=== PATIENT | female | born 1940 | race Caucasian/White ===

== ENCOUNTER 2016-05-09 17:22 | Emergency (ER) | payer OTHER, MEDICARE ==
[2016-05-09 17:57] VITALS: BMI 31.0
--- NOTE | 2016-05-09 19:00 | PDOC ---
History of Present Illness - General Chief Complaint: Wound Infection Stated Complaint: Wound Infection Time Seen by Provider: 05/09/16 17:33 History Source: Patient Exam Limitations: No Limitations - History of Present Illness Initial Comments: 05/09/16 20:10 The patient is a 75 year old female, BIBA from [facility] with a significant past medical history of dementia, hypothyroidism, hyperlipidemia, HTN, who was sent to the emergency department with possible left ankle wound infection. Patient reports having a previous recent ORIF (surgery was done in Jan 2016 [facility] ), on her left ankle, but is unsure on exact details secondary to dementia. Upon evaluation patient is confused and unsure why she is here. She does not know who sent her to the ER. She denies any pain in her left ankle. She denies recent fevers, chills, headache or dizziness. She denies recent nausea, vomit, diarrhea or constipation. Allergies: NKDA Social history: Nonsmoker. PCP: Dr.DeFlippo Phillipsho: Dr. Ferrer Past History - Past Medical History Allergies/Adverse Reactions: Allergies Allergy/AdvReac Type Severity Reaction Status Date / Time ИРИНА Inhibitors Allergy Unknown Verified 05/09/16 17:35 Sulfa (Sulfonamide Allergy Unknown Verified 05/09/16 17:35 Antibiotics) Home Medications: Ambulatory Orders Acetaminophen 650 mg PO Q4H PRN 05/09/16 Allopurinol [Zyloprim -] 100 mg PO DAILY 05/09/16 Amlodipine Besylate [Norvasc -] 10 mg PO DAILY 05/09/16 Aspirin [ASA -] 325 mg PO DAILY 05/09/16 Carvedilol 25 mg PO BID 05/09/16 Cyanocobalamin (Vitamin B-12) [Vitamin B12] 1,000 mcg PO DAILY 05/09/16 Estrogens,Conjugated [Premarin -] 0.3 mg PO DAILY 05/09/16 Ezetimibe [Zetia] 10 mg PO DAILY 05/09/16 Ferrous Sulfate 325 mg PO DAILY 05/09/16 Folic Acid 0.4 mg PO DAILY 05/09/16 Insulin (Levemir) [Levemir Flexpen -] 32 units SQ BID 05/09/16 Levothyroxine [Synthroid -] 100 mcg PO DAILY 05/09/16 Losartan Potassium 100 mg PO DAILY 05/09/16 Medroxyprogesterone Acetate 2.5 mg PO DAILY 05/09/16 Nitroglycerin [Nitrostat] 0.4 mg SL PRN PRN 05/09/16 Nystatin Ointment [Mycostatin Ointment -] 1 applic TP TID 05/09/16 Oxycodone HCl 5 mg PO Q4H PRN 05/09/16 Polyethylene Glycol 3350 [Miralax (For Daily Use) -] 17 gm PO DAILY 05/09/16 Sennosides/Docusate Sodium [Senna Laxative Tablet] 1 each PO DAILY 05/09/16 Trazodone HCl 50 mg PO TID 05/09/16 Dementia: Yes Diabetes: Yes HTN: Yes Hypercholesterolemia: Yes Psychiatric Problems: Yes (DEPRESSION.) Thyroid Disease: Yes (HYPO.) Other medical history: GOUT. - Psycho/Social/Smoking Cessation Hx Anxiety: No Suicidal Ideation: No Smoking History: Never smoked Hx Alcohol Use: No Drug/Substance Use Hx: No Substance Use Type: None Review of Systems - Review of Systems Able to Perform ROS?: Yes Comments:: 05/09/16 20:10 ROS -possibly limited due to dementia. CONSTITUTIONAL: No reported: Fever, Chills, Diaphoresis, Generalized Weakness, Malaise, Loss of Appetite HEENT: No reported: Rhinorrhea, Nasal Congestion, Throat Pain, Throat Swelling, Difficulty Swallowing, Mouth Swelling, Ear Pain, Eye Pain, Visual Changes CARDIOVASCULAR: No reported: Chest Pain, Syncope, Palpitations, Irregular Heart Rate, Lightheadedness, Peripheral Edema RESPIRATORY: No reported: Cough, Shortness of Breath, SOB with Exertion, Orthopnea, Wheezing , Stridor, Hemoptysis GASTROINTESTINAL: No reported: Abdominal pain, Abdominal Distension, Nausea, Vomiting, Diarrhea, Constipation, Melena, Hematochezia GENITOURINARY: No reported: Dysuria, Frequency, Urgency, Hesitancy, Flank Pain, Genital Pain MUSCULOSKELETAL: +Left ankle wound infection. No reported: Myalgia, Arthralgia, Joint Swelling, Back pain, Neck Pain SKIN: No reported: Rash, Itching, Pallor HEMEATOLOGIC/IMMUNOLOGIC: No reported: Easy Bleeding, Easy Bruising, Lymphadenopathy, Frequent infections ENDOCRINE: No reported: Unexplained Weight Gain, Unexplained Weight Loss, Heat Intolerance , Cold Intolerance NEUROLOGIC: No reported: Headache, Focal Weakness, Paresthesias, Vertigo, Lightheadedness, Unsteady Gait, Seizure, Mental Status Changes, Incontinence PSYCHIATRIC: No reported: Anxiety, Depression *Physical Exam - Vital Signs Last Vital Signs Temp Pulse Resp BP Pulse Ox 97.7 F 84 18 185/74 99 05/09/16 17:34 05/09/16 17:34 05/09/16 17:34 05/09/16 17:34 05/09/16 17:34 - Physical Exam Comments: 05/09/16 20:10 GENERAL: The patient is awake, alert, and oriented x 1 (knows name, that she is in hospital, but gave '[facility]'), Nontoxic - in no acute distress, morbidly obese. HEAD: Normocephalic, atraumatic. EYES: extraocular movements intact, sclera anicteric, conjunctiva clear. ENT: Normal voice, Moist mucous membranes. NECK: Normal range of motion, supple LUNGS: Breath sounds equal, clear to auscultation bilaterally. No wheezes, no rhonchi, no rales. HEART: Regular rate and rhythm, normal S1 and S2 without murmur, rub or gallop. ABDOMEN: Soft, nontender, normoactive bowel sounds. No guarding, no rebound. . No CVA tenderness EXTREMITIES: LLE large post op incision on lateral lower leg, with sutures and steristrips in place, on medial lower leg there is also an post op incision with sutures/steri strips but the distal end of the lesion shows an ulceration with mild surrounding erythema, no fluctuance, mildly tender to palpation. NEUROLOGICAL: No facial assymetry, Normal speech, PSYCH: Normal mood, normal affect. SKIN: Warm, Dry, normal turgor, Heart Score/ECG Review - ECG Impressions Comment:: 05/09/16 20:13 Twelve-lead EKG was performed and reviewed by me. There is normal sinus rhythm with a normal rate. Rate of 75 Left axis deviation Abnormal R wave progression Q waves in inferior leads Q waves in the anterior leads no old EKG for comparison ED Treatment Course - LABORATORY CBC & Chemistry Diagram: 05/09/16 19:30 05/09/16 18:28 Medical Decision Making - Medical Decision Making 05/09/16 18:38 75y F hx of dementia, depression, htn, hypothyroidism s/p surgical repair of L ankle fracture, was sent to the ER for evluation of concern for a wound to her L ankle. I spoke to the patients son who said the pts injury and surgery was originally in january, and was in rehab for 2 months, and had been having follow up appointments with her orthopedic surgeon, The pts does not appear to have an acute infection, as it is not warm, no discharge, but there is a present of the ulcer on the medial malleolus there iare steri strips still present, which is not consistent with a surgery that was in 02/08 with regular ortho follow up unless it was revised will discuss with dr. ferrer if possible if unable to talk to dr. ferrer will consult our ortho professional benefits sales consultant. 05/09/16 19:[address] ferrer - would recommend starting keflex and should have the pt fu wiht them this week sometime in the office. will give pt a dose of abx here. will sign out to dr. Sanchez to fu with lab work *DC/Admit/Observation/Transfer Diagnosis at time of Disposition: Wound cellulitis - Referrals Referrals: Gracie Cage MD [Primary Care Provider] - Eileen Ferrer MD [Other] - Patient Instructions Printed Discharge Instructions: DI for Wound Infection Additional Instructions: Return to the emergency department immediately with ANY new, persistent or worsening symptoms. including fever, increased redness, pain, discharge or other concerns. You MUST call and follow up with Dr. Ferrer for further evaluation of your symptoms this week. Results were discussed with you. Please make sure your doctor reviews the results of your emergency evaluation. If you had any xrays during your visit, it was read preliminarily by myself, a Radiologist will review it and if there are any additional findings we will call you. Print Language: GIBRALTARIAN
[2016-05-09 19:10] LABS: ALBUMIN 3.4 g/dl (3.4-5.0); BILIRUBIN,TOTAL 0.2 mg/dL (0.2-1.0); CALCIUM 9.8 mg/dL (8.5-10.1); TOT PROT 7.8 g/dl (6.4-8.2)
[2016-05-09 19:53] LABS: MCH 27.7 pg (25.7-33.7); MEAN CELL VOLUME 86.6 fl (80-96); MEAN PLT VOLUME 8.2 fl (7.5-11.1); PLATELET COUNT 312 K/MM3 (134-434); RDW 15.4 % (11.6-15.6); WHITE BLOOD COUNT 14.1 K/mm3 (4.0-10.0)
[2016-05-09] MEDS ORDERED: CEFTRIAXONE 50 ML ONE ×2 (20:26→20:27)
[2016-05-09 20:28] LABS: METAMYELOCYTE 1 % (0-2); PLATELET ESTIMATE ADEQUATE (NORMAL)
[2016-05-09 20:29] LABS: HYPOCHROMIA 1+
--- NOTE | 2016-05-09 22:47 | PDOC ---
*Physical Exam - Vital Signs Last Vital Signs Temp Pulse Resp BP Pulse Ox 97.7 F 84 18 185/74 99 05/09/16 17:34 05/09/16 17:34 05/09/16 17:34 05/09/16 17:34 05/09/16 17:34 ED Treatment Course - LABORATORY CBC & Chemistry Diagram: 05/09/16 19:30 05/09/16 18:28 - ADDITIONAL ORDERS Additional order review: Laboratory Results 05/09/16 18:28 Sodium 139 Potassium 4.7 Chloride 104 Carbon Dioxide 24 Anion Gap 11 BUN 21 H Creatinine 1.0 Creat Clearance w eGFR 54.05 Random Glucose 314 H* Calcium 9.8 Total Bilirubin 0.2 AST 16 ALT 16 Alkaline Phosphatase 145 H Total Protein 7.8 Albumin 3.4 05/09/16 05/09/16 19:30 18:28 RBC 4.11 Cancelled MCV 86.6 Cancelled MCHC 32.0 Cancelled RDW 15.4 Cancelled MPV 8.2 Cancelled Neutrophils % 70.0 Cancelled Lymphocytes % 26.0 Cancelled Monocytes % 3.0 L Cancelled Eosinophils % Cancelled Basophils % Cancelled - Medications Given in the ED: ED Medications Discontinued Medications Generic Name Dose Route Start Last Admin Trade Name Freq PRN Reason Stop Dose Admin Ceftriaxone Sodium 1,000 mg 05/09/16 19:57 05/09/16 20:55 Rocephin - IVPB 05/09/16 19:58 1,000 mg ONCE ONE Administration Medical Decision Making - Medical Decision Making 05/09/16 22:43 glucose is now 204. Pt will return to [address] [place] [address]. *DC/Admit/Observation/Transfer Diagnosis at time of Disposition: Wound cellulitis - Discharge Dispostion Disposition: HOME Condition at time of disposition: Stable Admit: No - Referrals Referrals: Eileen Morales MD [Other] Gracie Cage MD [Primary Care Provider] - - Patient Instructions Printed Discharge Instructions: DI for Wound Infection Additional Instructions: Return to the emergency department immediately with ANY new, persistent or worsening symptoms. including fever, increased redness, pain, discharge or other concerns. You MUST call and follow up with Dr. Morales for further evaluation of your symptoms this week. Results were discussed with you. Please make sure your doctor reviews the results of your emergency evaluation. If you had any xrays during your visit, it was read preliminarily by myself, a Radiologist will review it and if there are any additional findings we will call you. Print Language: SERBIAN - Post Discharge Activity
[2016-05-09 23:51] VITALS: BP 141/72; PULSE 80; TEMP 97.9
--- NOTE | 2016-05-10 13:46 | EKG ---
Test Reason : Blood Pressure : / mmHG Vent. Rate : 075 BPM Atrial Rate : 075 BPM P-R Int : 156 ms QRS Dur : 086 ms QT Int : 416 ms P-R-T Axes : 048 -43 036 degrees QTc Int : 464 ms NORMAL SINUS RHYTHM LEFT AXIS DEVIATION MINIMAL VOLTAGE CRITERIA FOR LVH, MAY BE NORMAL VARIANT SEPTAL INFARCT , AGE UNDETERMINED POSSIBLE LATERAL INFARCT , AGE UNDETERMINED INFERIOR INFARCT , AGE UNDETERMINED ABNORMAL ECG NO PREVIOUS ECGS AVAILABLE Confirmed by JUDI ALTAMIRANO MD ([id number]) on 05/10/2016 1:45:55 PM Referred By: Confirmed By:JUDI ALTAMIRANO MD
== END 2016-05-09 23:51 | disposition home or self-care (01) ==
LOC: JER 17:22
DX: L03.116 Cellulitis of left lower limb (principal); T81.4XXA Infection following a procedure, initial encounter; I10 Essential (primary) hypertension; E11.9 Type 2 diabetes mellitus without complications; Z79.4 Long term (current) use of insulin; E78.00 Pure hypercholesterolemia, unspecified; E03.9 Hypothyroidism, unspecified; M10.9 Gout, unspecified; F03.90 Unspecified dementia, unspecified severity, without behavioral disturbance, psychotic disturbance, mood disturbance, and anxiety
CPT/HCPCS: 36415; 73610-TC-LT; 73630-TC-LT; 80053; 85025; 87040; 93005; 93010; 99284-25

== ENCOUNTER 2016-05-20 21:43 | Inpatient (IN) | payer OTHER, MEDICARE ==
--- NOTE | 2016-05-20 22:32 | PDOC ---
History of Present Illness <Mohinder Burger - Last Filed: 05/20/16 22:32> - History of Present Illness Initial Comments: 05/20/16 23:28 Patient is a 75 year old female, from [facility], with significant medical hx of dementia, diabetes, HTN, HLD, and hypothyroidism who has been sent to the ED from [place] for a chronic wound to her left ankle. As per previous charts, the patient recently had an ORIF to left ankle performed by Dr. Morales at [place] 01/2016. The patient is a poor historian due to dementia and is unsure of her history. She denies any fevers. Allergies: NKDA Social History: Nonsmoker PMD: Gracie Mohamud MD Institutional Custodian: Anthony Mas MD <Sofie Maldonado - Last Filed: 05/20/16 23:28> <Janee Zuniga - Last Filed: 05/21/16 04:34> - General Chief Complaint: Revisit,Wound Recheck Stated Complaint: WOUND RT FOOT Past History - Past Medical History Dementia: Yes Diabetes: Yes HTN: Yes Hypercholesterolemia: Yes Psychiatric Problems: Yes (DEPRESSION.) Thyroid Disease: Yes (HYPO.) - Immunization History Immunization Up to Date: Yes - Psycho/Social/Smoking Cessation Hx Anxiety: No Suicidal Ideation: No Smoking History: Never smoked Have you smoked in the past 12 months: No Information on smoking cessation initiated: No Hx Alcohol Use: No Drug/Substance Use Hx: No Substance Use Type: None <Mohinder Burger - Last Filed: 05/20/16 22:32> <Sofie Maldonado - Last Filed: 05/20/16 23:28> <Janee Zuniga - Last Filed: 05/21/16 04:34> - Past Medical History Allergies/Adverse Reactions: Allergies Allergy/AdvReac Type Severity Reaction Status Date / Time ИРИНА Inhibitors Allergy Unknown Verified 05/20/16 22:24 Sulfa (Sulfonamide Allergy Unknown Verified 05/20/16 22:24 Antibiotics) Home Medications: Ambulatory Orders Acetaminophen [Tylenol] 325 mg PO DAILY PRN 05/21/16 Allopurinol [Zyloprim -] 100 mg PO DAILY 05/21/16 Amlodipine Besylate 10 mg PO DAILY 05/21/16 Aspirin [ASA -] 325 mg PO DAILY 05/21/16 Carvedilol [Coreg -] 25 mg PO DAILY 05/21/16 Cyanocobalamin (Vitamin B-12) [Vitamin B-12] 1,000 mcg PO DAILY 05/21/16 Estrogens,Conjugated [Premarin -] 0.3 mg PO DAILY 05/21/16 Ezetimibe [Zetia] 10 mg PO DAILY 05/21/16 Ferrous Sulfate 325 mg PO DAILY 05/21/16 Folic Acid 0.4 mg PO DAILY 05/21/16 Furosemide [Lasix -] 20 mg PO DAILY 05/21/16 Insulin (Levemir) [Levemir Flexpen -] 0 units SQ DAILY 05/21/16 Insulin Lispro [Humalog] 0 unit SQ DAILY 05/21/16 Levothyroxine [Synthroid -] 100 mcg PO DAILY 05/21/16 Losartan Potassium 100 mg PO DAILY 05/21/16 Medroxyprogesterone Acetate 2.5 mg PO DAILY 05/21/16 Nitroglycerin [Nitrostat] 0.4 mg SL DAILY PRN 05/21/16 Nystatin/Triamcinolone Top Cr [Mycolog II Cream -] 1 applic TP BID 05/21/16 Oxycodone HCl 5 mg PO Q4H PRN 05/21/16 Polyethylene Glycol 3350 [Miralax (For Daily Use) -] 17 gm PO DAILY 05/21/16 Sennosides [Senna] 2 tab PO DAILY 05/21/16 Trazodone HCl 50 mg PO DAILY 05/21/16 Review of Systems - Review of Systems Comments:: 05/20/16 23:28 CONSTITUTIONAL: Absent: fever, chills, diaphoresis, generalized weakness, malaise, loss of appetite HEENT: Absent: rhinorrhea, nasal congestion, throat pain, throat swelling, difficulty swallowing, mouth swelling, ear pain, eye pain, visual changes CARDIOVASCULAR: Absent: chest pain, syncope, palpitations, irregular heart rate, lightheadedness , peripheral edema RESPIRATORY: Absent: cough, shortness of breath, dyspnea with exertion, orthopnea, wheezing, stridor, hemoptysis GASTROINTESTINAL: Absent: abdominal pain, abdominal distension, nausea, vomiting, diarrhea, constipation, melena, hematochezia GENITOURINARY: Absent: dysuria, frequency, urgency, hesitancy, hematuria, flank pain, genital pain MUSCULOSKELETAL: Present: left ankle swelling Absent: myalgia, arthralgia SKIN: Present: ulcer wound to left ankle Absent: rash, itching, pallor HEMATOLOGIC/IMMUNOLOGIC: Absent: easy bleeding, easy bruising, lymphadenopathy, frequent infections ENDOCRINE: Absent: unexplained weight gain, unexplained weight loss, heat intolerance, cold intolerance NEUROLOGIC: Absent: headache, focal weakness or paresthesia, dizziness, unsteady gait, seizure, mental status changes, bladder or bowel incontinence. PSYCHIATRIC: Absent: anxiety, depression, suicidal or homicidal ideation, hallucinations <JoelSofie - Last Filed: 05/20/16 23:28> *Physical Exam - Vital Signs Last Vital Signs Temp Pulse Resp BP Pulse Ox 97.5 F L 79 19 155/75 98 05/20/16 22:16 05/20/16 22:16 05/20/16 22:16 05/20/16 22:16 05/20/16 22:16 <Mohinder Burger - Last Filed: 05/20/16 22:32> - Vital Signs Last Vital Signs Temp Pulse Resp BP Pulse Ox 97.5 F L 79 19 155/75 98 05/20/16 22:16 05/20/16 22:16 05/20/16 22:16 05/20/16 22:16 05/20/16 22:16 - Physical Exam Comments: 05/20/16 23:29 GENERAL: Well developed, well nourished. Awake and alert. No acute distress. HEENT: Normocephalic, atraumatic. PERRLA, EOMI. No conjunctival pallor. Sclera are non- icteric. Moist mucous membranes. Oropharynx is clear. NECK: Supple. Full ROM. No JVD. Carotid pulses 2+ and symmetric, without bruits. No thyromegaly. No lymphadenopathy. CARDIOVASCULAR: Regular rate and rhythm. No murmurs, rubs, or gallops. Distal pulses are 2+ and symmetric. PULMONARY: No evidence of respiratory distress. Lungs clear to auscultation bilaterally. No wheezing, rales or rhonchi. ABDOMINAL: Soft. Non-tender. Non-distended. No rebound or guarding. No organomegaly. Normoactive bowel sounds. MUSCULOSKELETAL: Normal range of motion at all joints. No bony deformities or tenderness. No CVA tenderness. EXTREMITIES: Left leg cellulitis. Ulcer along the medial malleolus of the left ankle. Left foot swelling. Unable to detect DP pulses. Patient can move toes. No cyanosis. No clubbing. No calf tenderness. SKIN: Warm and dry. Normal capillary refill. No rashes. No jaundice. NEUROLOGICAL: Alert, awake, appropriate. Cranial nerves 2-12 intact. Normal speech. Gait is normal without ataxia. <Sofie Maldonado - Last Filed: 05/20/16 23:28> - Vital Signs Last Vital Signs Temp Pulse Resp BP Pulse Ox 97.5 F L 79 19 155/75 98 05/20/16 22:16 05/20/16 22:16 05/20/16 22:16 05/20/16 22:16 05/20/16 22:16 <Janee Zuniga - Last Filed: 05/21/16 04:34> ED Treatment Course - LABORATORY CBC & Chemistry Diagram: 05/20/16 23:30 05/20/16 23:30 - ADDITIONAL ORDERS Additional order review: Laboratory Results 05/20/16 05/20/16 23:30 23:30 Sodium 142 Potassium 3.9 Chloride 104 Carbon Dioxide 29 D Anion Gap 9 BUN 20 H Creatinine 1.1 H Creat Clearance w eGFR 48.42 Random Glucose 166 H D Lactic Acid 0.984 Calcium 8.9 Total Bilirubin 0.2 AST 15 ALT 15 Alkaline Phosphatase 137 H Total Protein 7.1 Albumin 3.0 L 05/20/16 23:30 RBC 3.89 MCV 85.7 MCHC 32.9 RDW 15.7 H MPV 8.3 Neutrophils % 70.5 Lymphocytes % 20.1 D Monocytes % 7.1 D Eosinophils % 1.6 Basophils % 0.7 - Medications Given in the ED: ED Medications Discontinued Medications Generic Name Dose Route Start Last Admin Trade Name Freq PRN Reason Stop Dose Admin Vancomycin HCl 1,000 mg/ 250 mls @ 250 mls/hr 05/20/16 23:04 05/21/16 00:06 Dextrose IVPB 05/21/16 00:03 250 mls/hr ONCE ONE Administration Protocol Piperacillin Sod/Tazobactam Sod 3.375 gm 05/20/16 23:05 05/20/16 23:39 Zosyn 3.375gm Ivpb (Pre-Docked) IVPB 05/20/16 23:06 3.375 gm ONCE ONE Administration Protocol <Janee Zuniga - Last Filed: 05/21/16 04:34> Medical Decision Making - Medical Decision Making 05/21/16 03:42 I received patient on signout. She is from the [facility] with infected leg and hardware after a ORIF. She will be admitted for IV abx. Hospitalist was paged. I am awaiting response. <Janee Zuniga - Last Filed: 05/21/16 04:34> *DC/Admit/Observation/Transfer <Mohinder Burger - Last Filed: 05/20/16 22:32> - Attestations Scribe Attestion: 05/20/16 23:29 Documentation prepared by Sofie Maldonado, acting as director biomedical engineering for Mohinder Burger MD. <Sofie Maldonado - Last Filed: 05/20/16 23:28> - Discharge Dispostion Admit: Yes <Janee Zuniga - Last Filed: 05/21/16 04:34> Diagnosis at time of Disposition: Wound cellulitis, Inability to ambulate due to ankle or foot - Discharge Dispostion Condition at time of disposition: Guarded - Referrals Referrals: Anthony Mas [Primary Care Provider] -
[2016-05-20 22:50] VITALS: BP 155/75; PULSE 79; TEMP 97.5; BMI 31.0
[2016-05-20] MEDS ORDERED: VANCOMYCIN 1,000 MG in DEXTROSE 5%-WATER - 250 ML IVPB ONE (23:04)
[2016-05-20] MEDS ORDERED: PIPERACILLIN/TAZOB 3.375 GM/50 ML PRE-DOCKED IVPB ONE (23:05)
[2016-05-20] MEDS ORDERED: PIPERACILLIN/TAZOB 3.375 GM 50 ML IVPB ONE ×2 (23:21→23:36)
[2016-05-21] MEDS ORDERED: VANCOMYCIN 1 GRAM (PRE-DOCKED) 250 ML IVPB ONE (00:04)
[2016-05-21 00:06] LABS: BASOPHIL 0.7 % (0-2.0); EOSINOPHIL 1.6 % (0-4.5); MCH 28.2 pg (25.7-33.7); MCHC 32.9 g/dl (32.0-36.0); MEAN CELL VOLUME 85.7 fl (80-96); MEAN PLT VOLUME 8.3 fl (7.5-11.1); NEUTROPHILS 70.5 % (42.8-82.8); PLATELET COUNT 271 K/MM3 (134-434); RDW 15.7 % (11.6-15.6); WHITE BLOOD COUNT 14.5 K/mm3 (4.0-10.0)
[2016-05-21 00:14] LABS: BILIRUBIN,TOTAL 0.2 mg/dL (0.2-1.0); CALCIUM 8.9 mg/dL (8.5-10.1); CREATININE 1.1 mg/dL (0.55-1.02); TOT PROT 7.1 g/dl (6.4-8.2)
[2016-05-21 05:11] LABS: URINE APPEARANCE CLEAR; URINE BILIRUBIN NEGATIVE (NEGATIVE); URINE BLOOD NEGATIVE (NEGATIVE); URINE COLOR STRAW; URINE GLUCOSE (UA) NEGATIVE (NEGATIVE); URINE KETONE NEGATIVE (NEGATIVE); URINE LEUK ESTERASE NEGATIVE (NEGATIVE); URINE NITRITE NEGATIVE (NEGATIVE); URINE UROBILINOGEN NEGATIVE E.U./dl (0.2-1.0)
--- NOTE | 2016-05-21 05:28 | CONSULT ---
Consultation: REQUESTING PROVIDER: Dr Zuniga CONSULT REQUEST: We have been asked to medically evaluate this patient for ( cellulites). HISTORY OF PRESENT ILLNESS: History obtained from ED notes The patient is a 75 year old female, with a significant past medical history of dementia, hypothyroidism, hyperlipidemia, HTN, who was sent to the emergency department with possible left ankle wound infection. Patient reports having a previous recent ORIF (surgery was done in Jan 2016 at [facility] by ), on her left ankle, but is unsure on exact details secondary to dementia. She states mild pain in her left ankle on palpation. She denies recent fevers, chills, headache or dizziness. She denies recent nausea, vomit, diarrhea or constipation. Patient came to ED couple of days ago with same problem and was discharged on Keflex. Patient has recieved vanco and zosyn in ed . PCP: Dr.DeFlippo Teague: Dr. Morales REVIEW OF SYSTEMS: CONSTITUTIONAL: Absent: fever, chills, diaphoresis, generalized weakness, malaise, loss of appetite, weight change HEENT: Absent: rhinorrhea, nasal congestion, throat pain, throat swelling, CARDIOVASCULAR: Absent: chest pain, syncope, palpitations, RESPIRATORY: Absent: cough, shortness of breath, dyspnea GASTROINTESTINAL: Absent: abdominal pain, abdominal distension, nausea, vomiting, diarrhea, constipation, melena, GENITOURINARY: Absent: dysuria, frequency, urgency, hesitancy, hematuria MUSCULOSKELETAL: mild pain in left ankle on palpation Absent: myalgia, arthralgia, joint swelling , back pain, neck pain NEUROLOGIC: Absent: headache, focal weakness or paresthesias, dizziness, unsteady gait, PSYCHIATRIC: Absent: anxiety, depression, PHYSICAL EXAMINATION Vital Signs - 24 hr 05/20/16 05/21/16 22:16 04:27 Temperature 97.5 F L Pulse Rate 79 Respiratory 19 19 Rate Blood Pressure 155/75 O2 Sat by Pulse 98 98 Oximetry (%) GENERAL: Awake, alert, and fully oriented, in no acute distress. HEAD: Normal with no signs of trauma. EYES: Pupils equal, round and reactive to light, conjunctiva clear. EARS, NOSE, THROAT: Moist mucous membranes. NECK: Normal range of motion, supple LUNGS: Breath sounds equal, clear to auscultation bilaterally. No wheezes, and no crackles. No accessory muscle use. HEART:s1s2 normal ABDOMEN: Soft, nontender, not distended, normoactive bowel sounds, no guarding, no rebound, no masses. UPPER EXTREMITIES: 2+ pulses, warm, well-perfused. No cyanosis. No clubbing. Cap refill <2 seconds. No peripheral edema. LOWER EXTREMITIES:warm, well-perfused. No calf tenderness. peripheral edema 2+ , dry chronic wound present on left ankle on medial side, no discharge seen, temp in both legs on palpation is same, mild tenderness on left ankle on deep palpation. No erythema, sensation to fine touch present. PSYCHIATRIC: Cooperative. Good eye contact. Appropriate mood and affect. SKIN: Warm, dry, Laboratory Results - last 24 hr 05/20/16 05/20/16 05/20/16 23:30 23:30 23:30 WBC RBC Hgb Hct MCV MCHC RDW Plt Count MPV Neutrophils % Lymphocytes % Monocytes % Eosinophils % Basophils % ESR 70 H Sodium 142 Potassium 3.9 Chloride 104 Carbon Dioxide 29 D Anion Gap 9 BUN 20 H Creatinine 1.1 H Creat Clearance w eGFR 48.42 Random Glucose 166 H D Lactic Acid 0.984 Calcium 8.9 Total Bilirubin 0.2 AST 15 ALT 15 Alkaline Phosphatase 137 H Total Protein 7.1 Albumin 3.0 L 05/20/16 23:30 WBC 14.5 H RBC 3.89 Hgb 11.0 Hct 33.4 MCV 85.7 MCHC 32.9 RDW 15.7 H Plt Count 271 MPV 8.3 Neutrophils % 70.5 Lymphocytes % 20.1 D Monocytes % 7.1 D Eosinophils % 1.6 Basophils % 0.7 ESR Sodium Potassium Chloride Carbon Dioxide Anion Gap BUN Creatinine Creat Clearance w eGFR Random Glucose Lactic Acid Calcium Total Bilirubin AST ALT Alkaline Phosphatase Total Protein Albumin ASSESSMENT/PLAN: Chronic wound on left ankle with very mild cellulites, no signs of osteomyelitis ( no active discharge, dry, temp in both leg same, afebrile) - give clindamycin 600mg q8h - limb elevation, - Follow up with her orthopedic surgeon Dr. Morales - Patient can be discharged with an advice to take medication as prescribed, limb elevation and follow up with her orthopedic surgeon. Dispo. Thank you for this consultative opportunity. <Won Durán - Last Filed: 05/21/16 06:10> Consultation: REQUESTING PROVIDER: CONSULT REQUEST: We have been asked to medically evaluate this patient for ( specify). HISTORY OF PRESENT ILLNESS: REVIEW OF SYSTEMS: CONSTITUTIONAL: Absent: fever, chills, diaphoresis, generalized weakness, malaise, loss of appetite, weight change HEENT: Absent: rhinorrhea, nasal congestion, throat pain, throat swelling, difficulty swallowing, mouth swelling, ear pain, eye pain, visual changes CARDIOVASCULAR: Absent: chest pain, syncope, palpitations, irregular heart rate, lightheadedness , peripheral edema RESPIRATORY: Absent: cough, shortness of breath, dyspnea with exertion, orthopnea, wheezing, stridor, hemoptysis GASTROINTESTINAL: Absent: abdominal pain, abdominal distension, nausea, vomiting, diarrhea, constipation, melena, hematochezia GENITOURINARY: Absent: dysuria, frequency, urgency, hesitancy, hematuria, flank pain, genital pain MUSCULOSKELETAL: Absent: myalgia, arthralgia, joint swelling, back pain, neck pain SKIN: Absent: rash, itching, pallor HEMATOLOGIC/IMMUNOLOGIC: Absent: easy bleeding, easy bruising, lymphadenopathy, frequent infections ENDOCRINE: Absent: unexplained weight gain, unexplained weight loss, heat intolerance, cold intolerance NEUROLOGIC: Absent: headache, focal weakness or paresthesias, dizziness, unsteady gait, seizure, mental status changes, bladder or bowel incontinence PSYCHIATRIC: Absent: anxiety, depression, suicidal or homicidal ideation, hallucinations. PHYSICAL EXAMINATION Vital Signs - 24 hr 05/20/16 05/21/16 22:16 04:27 Temperature 97.5 F L Pulse Rate 79 Respiratory 19 19 Rate Blood Pressure 155/75 O2 Sat by Pulse 98 98 Oximetry (%) GENERAL: Awake, alert, and fully oriented, in no acute distress. HEAD: Normal with no signs of trauma. EYES: Pupils equal, round and reactive to light, extraocular movements intact, sclera anicteric, conjunctiva clear. No lid lag. EARS, NOSE, THROAT: Ears normal, nares patent, oropharynx clear without exudates. Moist mucous membranes. NECK: Normal range of motion, supple without lymphadenopathy, JVD, or masses. LUNGS: Breath sounds equal, clear to auscultation bilaterally. No wheezes, and no crackles. No accessory muscle use. HEART: Regular rate and rhythm, normal S1 and S2 without murmur, rub or gallop. ABDOMEN: Soft, nontender, not distended, normoactive bowel sounds, no guarding, no rebound, no masses. No hepatomegaly or splenomegaly. MUSCULOSKELETAL: Normal range of motion at all joints. No bony deformities or tenderness. No CVA tenderness. UPPER EXTREMITIES: 2+ pulses, warm, well-perfused. No cyanosis. No clubbing. Cap refill <2 seconds. No peripheral edema. LOWER EXTREMITIES: 2+ pulses, warm, well-perfused. No calf tenderness. No peripheral edema. NEUROLOGICAL: Cranial nerves II-XII intact. Normal speech. Normal gait. PSYCHIATRIC: Cooperative. Good eye contact. Appropriate mood and affect. SKIN: Warm, dry, normal turgor, no rashes or lesions noted. Laboratory Results - last 24 hr 05/20/16 05/20/16 05/20/16 23:30 23:30 23:30 WBC RBC Hgb Hct MCV MCHC RDW Plt Count MPV Neutrophils % Lymphocytes % Monocytes % Eosinophils % Basophils % ESR 70 H Sodium 142 Potassium 3.9 Chloride 104 Carbon Dioxide 29 D Anion Gap 9 BUN 20 H Creatinine 1.1 H Creat Clearance w eGFR 48.42 Random Glucose 166 H D Lactic Acid 0.984 Calcium 8.9 Total Bilirubin 0.2 AST 15 ALT 15 Alkaline Phosphatase 137 H Total Protein 7.1 Albumin 3.0 L Urine Color Urine Appearance Urine pH Ur Specific Rowe Urine Protein Urine Glucose (UA) Urine Ketones Urine Blood Urine Nitrite Urine Bilirubin Urine Urobilinogen Ur Leukocyte Esterase Urine RBC Urine WBC Ur Epithelial Cells Urine Bacteria 05/20/16 05/21/16 23:30 04:48 WBC 14.5 H RBC 3.89 Hgb 11.0 Hct 33.4 MCV 85.7 MCHC 32.9 RDW 15.7 H Plt Count 271 MPV 8.3 Neutrophils % 70.5 Lymphocytes % 20.1 D Monocytes % 7.1 D Eosinophils % 1.6 Basophils % 0.7 ESR Sodium Potassium Chloride Carbon Dioxide Anion Gap BUN Creatinine Creat Clearance w eGFR Random Glucose Lactic Acid Calcium Total Bilirubin AST ALT Alkaline Phosphatase Total Protein Albumin Urine Color Straw Urine Appearance Clear Urine pH 5.0 Ur Specific Rowe 1.009 Urine Protein 2+ H Urine Glucose (UA) Negative Urine Ketones Negative Urine Blood Negative Urine Nitrite Negative Urine Bilirubin Negative Urine Urobilinogen Negative Ur Leukocyte Esterase Negative Urine RBC 5 Urine WBC 3 Ur Epithelial Cells Few Urine Bacteria Few ASSESSMENT/PLAN: Dispo: We will continue to follow the patient. Thank you for this consultative opportunity. ASSESSMENT & PLAN I saw and evaluated the patient. I reviewed the resident's note and discussed the case with the resident. I agree with the resident's findings and plan as documented. <Shauna Amaya - Last Filed: 05/21/16 06:46> Visit type - Emergency Visit Emergency Visit: Yes Care time: The patient presented to the Emergency Department on the above date and was hospitalized for further evaluation of their emergent condition. - New Patient This patient is new to me today: Yes Date on this admission: 05/21/16 - Critical Care Critical Care patient: No <Won Durán - Last Filed: 05/21/16 06:10>
[2016-05-21 05:44] LABS: URINE PROTEIN 2+ (NEGATIVE)
[2016-05-21 05:45] LABS: URINE BACTERIA FEW /hpf (NONE SEEN); URINE RBC 5 /hpf (0-3); URINE WBC 3 /hpf (3-5)
--- NOTE | 2016-05-21 06:44 | PDOC ---
*Physical Exam - Vital Signs Last Vital Signs Temp Pulse Resp BP Pulse Ox 97.5 F L 79 19 155/75 98 05/20/16 22:16 05/20/16 22:16 05/21/16 04:27 05/20/16 22:16 05/21/16 04:27 ED Treatment Course - LABORATORY CBC & Chemistry Diagram: 05/20/16 23:30 05/20/16 23:30 - ADDITIONAL ORDERS Additional order review: Laboratory Results 05/21/16 05/20/16 05/20/16 04:48 23:30 23:30 Sodium 142 Potassium 3.9 Chloride 104 Carbon Dioxide 29 D Anion Gap 9 BUN 20 H Creatinine 1.1 H Creat Clearance w eGFR 48.42 Random Glucose 166 H D Lactic Acid 0.984 Calcium 8.9 Total Bilirubin 0.2 AST 15 ALT 15 Alkaline Phosphatase 137 H Total Protein 7.1 Albumin 3.0 L Urine Color Straw Urine Appearance Clear Urine pH 5.0 Ur Specific Irving 1.009 Urine Protein 2+ H Urine Glucose (UA) Negative Urine Ketones Negative Urine Blood Negative Urine Nitrite Negative Urine Bilirubin Negative Urine Urobilinogen Negative Ur Leukocyte Esterase Negative Urine RBC 5 Urine WBC 3 Ur Epithelial Cells Few Urine Bacteria Few 05/20/16 23:30 RBC 3.89 MCV 85.7 MCHC 32.9 RDW 15.7 H MPV 8.3 Neutrophils % 70.5 Lymphocytes % 20.1 D Monocytes % 7.1 D Eosinophils % 1.6 Basophils % 0.7 - Medications Given in the ED: ED Medications Discontinued Medications Generic Name Dose Route Start Last Admin Trade Name Freq PRN Reason Stop Dose Admin Vancomycin HCl 1,000 mg/ 250 mls @ 250 mls/hr 05/20/16 23:04 05/21/16 00:06 Dextrose IVPB 05/21/16 00:03 250 mls/hr ONCE ONE Administration Protocol Piperacillin Sod/Tazobactam Sod 3.375 gm 05/20/16 23:05 05/20/16 23:39 Zosyn 3.375gm Ivpb (Pre-Docked) IVPB 05/20/16 23:06 3.375 gm ONCE ONE Administration Protocol *DC/Admit/Observation/Transfer Diagnosis at time of Disposition: Wound cellulitis, Inability to ambulate due to ankle or foot - Discharge Dispostion Disposition: SNF FACILITY Condition at time of disposition: Guarded Admit: No - Referrals Referrals: Anthony Mas [Primary Care Provider] - - Patient Instructions - Post Discharge Activity
--- NOTE | 2016-05-21 18:14 | EKG ---
Test Reason : Blood Pressure : / mmHG Vent. Rate : 079 BPM Atrial Rate : 079 BPM P-R Int : 160 ms QRS Dur : 086 ms QT Int : 410 ms P-R-T Axes : 044 -44 030 degrees QTc Int : 470 ms NORMAL SINUS RHYTHM LEFT AXIS DEVIATION INFERIOR INFARCT (CITED ON OR BEFORE 09-MAY-2016) POSSIBLE ANTERIOR INFARCT (CITED ON OR BEFORE 09-MAY-2016) ABNORMAL ECG WHEN COMPARED WITH ECG OF 09-MAY-2016 17:41, QUESTIONABLE CHANGE IN INITIAL FORCES OF LATERAL LEADS Confirmed by TERELL WALLER MD ([id number]) on 05/21/2016 6:13:57 PM Referred By: Confirmed By:TERELL WALLER MD
== END 2016-05-21 09:00 | DRG 603 ==
LOC: SUPCPDRO 21:43 → JER 21:43 → JERBED 05-21 04:35
PROVIDERS: ADMIT Internal Medicine; ATTEND Internal Medicine
DX: L03.116 Cellulitis of left lower limb (principal); I10 Essential (primary) hypertension; E78.5 Hyperlipidemia, unspecified; F03.90 Unspecified dementia, unspecified severity, without behavioral disturbance, psychotic disturbance, mood disturbance, and anxiety; E03.9 Hypothyroidism, unspecified; F32.89 Other specified depressive episodes; E11.9 Type 2 diabetes mellitus without complications
CPT/HCPCS: 36415; 71010-TC; 73590-TC-LT; 80053; 81003; 81015; 83605; 85025; 85651; 87040; 87086; 93005; 93010; 99284-25

== ENCOUNTER 2016-09-09 13:30 | Emergency (ER) | payer OTHER, MEDICARE ==
[2016-09-09 13:47] VITALS: BMI 25.7
--- NOTE | 2016-09-09 14:10 | PDOC ---
History of Present Illness - General History Source: Patient Exam Limitations: Dementia <Sandhya MullinsAl - Last Filed: 09/09/16 17:13> <Ronel Mclaughlin - Last Filed: 09/10/16 10:58> - General Chief Complaint: Altered Mental Status Stated Complaint: AMS Time Seen by Provider: 09/09/16 14:02 Past History - Past Medical History Anemia: Yes Dementia: Yes Diabetes: Yes HTN: Yes Hypercholesterolemia: Yes Psychiatric Problems: Yes (DEPRESSIon) Thyroid Disease: Yes (HYPO.) - Immunization History Immunization Up to Date: Yes - Psycho/Social/Smoking Cessation Hx Anxiety: No Suicidal Ideation: No Smoking History: Unknown if ever smoked Have you smoked in the past 12 months: No Information on smoking cessation initiated: No Hx Alcohol Use: No Drug/Substance Use Hx: No Substance Use Type: None <Radha MullinsKristina - Last Filed: 09/09/16 17:13> <Ronel Mclaughlin - Last Filed: 09/10/16 10:58> - Past Medical History Allergies/Adverse Reactions: Allergies Allergy/AdvReac Type Severity Reaction Status Date / Time ИРИНА Inhibitors Allergy Unknown Verified 09/09/16 13:42 Sulfa (Sulfonamide Allergy Unknown Verified 09/09/16 13:42 Antibiotics) Home Medications: Ambulatory Orders Allopurinol [Zyloprim -] 100 mg PO DAILY 05/21/16 Amlodipine Besylate 10 mg PO DAILY 05/21/16 Carvedilol [Coreg -] 25 mg PO DAILY 05/21/16 Cyanocobalamin (Vitamin B-12) [Vitamin B-12] 1,000 mcg PO DAILY 05/21/16 Estrogens,Conjugated [Premarin -] 0.3 mg PO DAILY 05/21/16 Ezetimibe [Zetia] 10 mg PO DAILY 05/21/16 Ferrous Sulfate 325 mg PO DAILY 05/21/16 Folic Acid 0.4 mg PO DAILY 05/21/16 Insulin (Levemir) [Levemir Flexpen -] 32 units SQ BID 05/21/16 Insulin Lispro [Humalog] 0 unit SQ ASDIR 05/21/16 Levothyroxine [Synthroid -] 100 mcg PO DAILY 05/21/16 Losartan Potassium 100 mg PO DAILY 05/21/16 Medroxyprogesterone Acetate 2.5 mg PO DAILY 05/21/16 Nitroglycerin [Nitrostat] 0.4 mg SL DAILY PRN 05/21/16 Polyethylene Glycol 3350 [Miralax (For Daily Use) -] 17 gm PO DAILY 05/21/16 Trazodone HCl 50 mg PO HS 05/21/16 Cephalexin [Keflex] 500 mg PO BID #14 capsule 09/09/16 Review of Systems - Review of Systems Constitutional: No: Fever ABD/GI: No: Nausea, Vomiting : Yes: Burning. No: Hematuria <Kayden Mullins - Last Filed: 09/09/16 17:13> *Physical Exam - Vital Signs Last Vital Signs Temp Pulse Resp BP Pulse Ox 98.2 F 75 18 136/52 96 09/09/16 13:42 09/09/16 13:42 09/09/16 13:42 09/09/16 13:42 09/09/16 13:42 - Physical Exam General Appearance: Yes: Appropriately Dressed. No: Apparent Distress HEENT: positive: Normal Voice Neck: positive: Supple Respiratory/Chest: negative: Respiratory Distress Gastrointestinal/Abdominal: positive: Soft. negative: Tender Musculoskeletal: negative: CVA Tenderness Integumentary: positive: Dry, Warm Neurologic: positive: Alert <Kayden Mullins - Last Filed: 09/09/16 17:13> - Vital Signs Last Vital Signs Temp Pulse Resp BP Pulse Ox 98.0 F 81 18 168/69 100 09/09/16 18:09 09/09/16 18:09 09/09/16 18:09 09/09/16 18:09 09/09/16 18:09 <Ronel Mclaughlin - Last Filed: 09/10/16 10:58> ED Treatment Course - LABORATORY CBC & Chemistry Diagram: 09/09/16 15:35 09/09/16 15:35 - RADIOLOGY Radiology Studies Ordered: Category Date Time Status CHEST X-RAY PORTABLE* [RAD] Stat Radiology 09/09/16 14:03 Ordered <Kayden Mullins - Last Filed: 09/09/16 17:13> - LABORATORY CBC & Chemistry Diagram: 09/09/16 15:35 09/09/16 15:35 - ADDITIONAL ORDERS Additional order review: 09/09/16 15:35 RBC 4.13 MCV 87.8 MCHC 32.3 RDW 13.5 D MPV 8.9 Neutrophils % 67.4 Lymphocytes % 21.7 Monocytes % 8.0 Eosinophils % 1.6 Basophils % 1.3 - Medications Given in the ED: ED Medications Discontinued Medications Generic Name Dose Route Start Last Admin Trade Name Nemo PRN Reason Stop Dose Admin Lorazepam 1 mg 09/09/16 14:32 09/09/16 14:38 Ativan Injection - IM 09/09/16 14:33 1 mg ONCE ONE Administration <Ronel Mclaughlin - Last Filed: 09/10/16 10:58> Medical Decision Making - Medical Decision Making 09/09/16 14:07 75-year-old female from [facility], with significant medical history of dementia , diabetes, hypertension, hyperlipidemia, hypothyroid, sent form [place] for dysuria and possible worsening confusion. Patient oriented 0 in ED, which is her baseline, and does report some dysuria since last night. Denies abdominal pain , back pain, nausea, vomiting, fever or chills See exam R/o uti Stable and well stephie w/ unremarkable exam -labs pending 09/09/16 14:10 09/09/16 15:07 Pt refusing blood draw and IV in ED and screaming profanities at staff at bedside. Case d/w ED attg and decision was made to administer ativan IM and reassess 09/09/16 17:13 Labs only remarkable for mildly elevated wbc of 13. Ua neg for le and nit. However will still tx given sxs (no +ucx on record here). Pt stable and well stephie throughout ED visit. Will discharge back to facility 09/09/16 17:20 <Kayden Mullins - Last Filed: 09/09/16 17:13> *DC/Admit/Observation/Transfer <Kayden Mullins - Last Filed: 09/09/16 17:13> - Attestations Physician Attestion: I reviewed the case with the mid-level practitioner and agree with the mid- level practitioner's assessment, diagnosis and disposition. <Ronel Mclaughlin - Last Filed: 09/10/16 10:58> Diagnosis at time of Disposition: Burning with urination - Discharge Dispostion Disposition: HOME Condition at time of disposition: Good - Prescriptions Prescriptions: Cephalexin [Keflex] 500 mg PO BID #14 capsule - Referrals Referrals: Gracie Cage MD [Primary Care Provider] - - Patient Instructions Additional Instructions: Patients labs including urine was unremarkable but given c/o burning on urination, keflex was sent to pharmacy on file, [facility] at [address] [id number]. Take as directed Please follow up with urine culture in 2-3 days at [phone]
[2016-09-09] MEDS ORDERED: LORAZEPAM CARPU-JECT 2 MG/ML DISP.SYRIN IM ONE (14:32)
[2016-09-09] MEDS ORDERED: LORAZEPAM CARPU-JECT 2 MG/ML DISP.SYRIN ONE (14:32)
[2016-09-09 15:50] LABS: BASOPHIL 1.3 % (0-2.0); EOSINOPHIL 1.6 % (0-4.5); MCH 28.3 pg (25.7-33.7); MCHC 32.3 g/dl (32.0-36.0); MEAN CELL VOLUME 87.8 fl (80-96); MEAN PLT VOLUME 8.9 fl (7.5-11.1); NEUTROPHILS 67.4 % (42.8-82.8); PLATELET COUNT 221 K/MM3 (134-434); RDW 13.5 % (11.6-15.6); WHITE BLOOD COUNT 13.3 K/mm3 (4.0-10.0)
[2016-09-09 16:15] LABS: ANION GAP 10 (8-16); BILIRUBIN,TOTAL 0.2 mg/dL (0.2-1.0); CALCIUM 8.6 mg/dL (8.5-10.1); CO2 27 mmol/L (21-32); CREATININE 1.3 mg/dL (0.55-1.02); GLUCOSE,RANDOM 193 mg/dL (74-106); SGOT/AST 17 U/L (15-37); SGPT/ALT 16 U/L (12-78); TOT PROT 6.7 g/dl (6.4-8.2)
[2016-09-09 16:17] LABS: ALK PHOS 98 U/L (45-117); TROPONIN I < 0.02 ng/ml (0.00-0.05)
[2016-09-09 17:08] LABS: URINE APPEARANCE CLEAR; URINE BILIRUBIN NEGATIVE (NEGATIVE); URINE BLOOD NEGATIVE (NEGATIVE); URINE COLOR STRAW; URINE GLUCOSE (UA) 1+ (NEGATIVE); URINE KETONE NEGATIVE (NEGATIVE); URINE LEUK ESTERASE NEGATIVE (NEGATIVE); URINE NITRITE NEGATIVE (NEGATIVE); URINE UROBILINOGEN NEGATIVE E.U./dl (0.2-1.0)
[2016-09-09 17:09] LABS: URINE PROTEIN 2+ (NEGATIVE)
[2016-09-09 17:10] LABS: URINE BACTERIA RARE /hpf (NONE SEEN); URINE MUCUS RARE; URINE RBC <1 /hpf (0-3); URINE WBC 2 /hpf (3-5)
[2016-09-09 18:09] VITALS: BP 168/69; PULSE 81; TEMP 98
--- NOTE | 2016-09-10 10:16 | EKG ---
Test Reason : Blood Pressure : / mmHG Vent. Rate : 075 BPM Atrial Rate : 075 BPM P-R Int : 186 ms QRS Dur : 100 ms QT Int : 432 ms P-R-T Axes : 055 -42 026 degrees QTc Int : 482 ms NORMAL SINUS RHYTHM LEFT AXIS DEVIATION ANTERIOR INFARCT (CITED ON OR BEFORE 09-MAY-2016) ABNORMAL ECG Confirmed by CLAUDIA JACOB MD ([id number]) on 09/10/2016 10:15:49 AM Referred By: Confirmed By:CLAUDIA JACOB MD
== END 2016-09-09 19:33 ==
LOC: JER 13:30
PROC: 3E023NZ Introduction of Analgesics, Hypnotics, Sedatives into Muscle, Percutaneous Approach (ICD-10-PCS; principal; 2016-09-09)
DX: R30.0 Dysuria (principal); D64.9 Anemia, unspecified; F03.90 Unspecified dementia, unspecified severity, without behavioral disturbance, psychotic disturbance, mood disturbance, and anxiety; E11.9 Type 2 diabetes mellitus without complications; Z79.4 Long term (current) use of insulin; I10 Essential (primary) hypertension; E78.00 Pure hypercholesterolemia, unspecified; E03.9 Hypothyroidism, unspecified; F32.9 Major depressive disorder, single episode, unspecified
CPT/HCPCS: 36415; 71010-TC; 80053; 81003; 81015; 82550; 84484; 85025; 87086; 93005; 93010; 96372; 99284-25

== ENCOUNTER 2016-10-09 17:57 | Inpatient (IN) | payer OTHER, MEDICARE ==
[2016-10-09 18:18] VITALS: BMI 24.0
[2016-10-09] MEDS ORDERED: ACETAMINOPHEN 325 MG TABLET (FP) PO ONE ×2 (20:07→20:55)
[2016-10-09] MEDS ORDERED: ACETAMINOPHEN 325 MG TABLET (FP) ONE (20:30)
--- NOTE | 2016-10-09 20:54 | PDOC ---
History of Present Illness - History of Present Illness Initial Comments: 10/09/16 20:47 75 yo F with h/o dementia, HTN, Gout, and hypothyroidism who presents for right knee pain. Pt. has baseline dementia with difficulty obtaining report. Per pt. she states that she is here following a fall and concussion 3 days ago while sleeping. She reports jumping out of bed and landing on her knees,face, elbows, and sustained multiple injuries. She endorses N/V, blurred vision, dizziness, neck stiffness, fatigue, weakness, and chest pain. Pt. speaks in fragmented sentences and has loose associations. She states that she has abdominal pain from current . Per pt. report from nursing staff at [address] [place] [address], Ms. Cabezas refused to get out of bed this evening and reacted with yelling when her right knee was palpated. residential staff does not recall any h/o recent falls. Pt. requests Tylenol for pain control. <Alvin Sandoval - Last Filed: 10/09/16 23:24> <Ronel Mclaughlin - Last Filed: 10/10/16 04:00> - General Chief Complaint: Pain, Acute Stated Complaint: KNEE PAIN Time Seen by Provider: 10/09/16 18:51 Past History - Past Medical History Anemia: Yes Dementia: Yes Diabetes: Yes HTN: Yes Hypercholesterolemia: Yes Psychiatric Problems: Yes (DEPRESSIon) Thyroid Disease: Yes (HYPO.) - Immunization History Immunization Up to Date: Yes - Psycho/Social/Smoking Cessation Hx Anxiety: No Suicidal Ideation: No Smoking History: Unknown if ever smoked Have you smoked in the past 12 months: No Information on smoking cessation initiated: No Hx Alcohol Use: No Drug/Substance Use Hx: No Substance Use Type: None <Alvin Sandoval - Last Filed: 10/09/16 23:24> <Ronel Mclaughlin - Last Filed: 10/10/16 04:00> - Past Medical History Allergies/Adverse Reactions: Allergies Allergy/AdvReac Type Severity Reaction Status Date / Time ИРИНА Inhibitors Allergy Unknown Verified 10/09/16 18:18 Sulfa (Sulfonamide Allergy Unknown Verified 10/09/16 18:18 Antibiotics) Home Medications: Ambulatory Orders Allopurinol [Zyloprim -] 100 mg PO DAILY 05/21/16 Amlodipine Besylate 10 mg PO DAILY 05/21/16 Carvedilol [Coreg -] 25 mg PO DAILY 05/21/16 Cyanocobalamin (Vitamin B-12) [Vitamin B-12] 1,000 mcg PO DAILY 05/21/16 Estrogens,Conjugated [Premarin -] 0.3 mg PO DAILY 05/21/16 Ezetimibe [Zetia] 10 mg PO DAILY 05/21/16 Ferrous Sulfate 325 mg PO DAILY 05/21/16 Folic Acid 0.4 mg PO DAILY 05/21/16 Insulin (Levemir) [Levemir Flexpen -] 32 units SQ TID 05/21/16 Insulin Lispro [Humalog] 0 unit SQ ASDIR 05/21/16 Levothyroxine [Synthroid -] 100 mcg PO DAILY 05/21/16 Losartan Potassium 100 mg PO DAILY 05/21/16 Medroxyprogesterone Acetate 2.5 mg PO DAILY 05/21/16 Nitroglycerin [Nitrostat] 0.4 mg SL DAILY PRN 05/21/16 Polyethylene Glycol 3350 [Miralax (For Daily Use) -] 17 gm PO DAILY 05/21/16 Trazodone HCl 50 mg PO HS 05/21/16 Review of Systems - Review of Systems Comments:: 10/09/16 20:55 GENERAL/CONSTITUTIONAL: No fever or chills. No weakness. HEAD, EYES, EARS, NOSE AND THROAT: No change in vision. No ear pain or discharge. No sore throat. CARDIOVASCULAR: No chest pain or shortness of breath RESPIRATORY: No cough, wheezing, or hemoptysis. GASTROINTESTINAL: No nausea, vomiting, diarrhea or constipation. GENITOURINARY: No dysuria, frequency, or change in urination. MUSCULOSKELETAL: + Right knee pain. No neck or back pain. SKIN: No rash NEUROLOGIC: No headache, vertigo, loss of consciousness, or change in strength/ sensation. ENDOCRINE: No increased thirst. No abnormal weight change HEMATOLOGIC/LYMPHATIC: No anemia, easy bleeding, or history of blood clots. ALLERGIC/IMMUNOLOGIC: No hives or skin allergy. <Alvin Sandoval - Last Filed: 10/09/16 23:24> *Physical Exam - Vital Signs Last Vital Signs Temp Pulse Resp BP Pulse Ox 97.6 F 72 18 134/77 100 10/09/16 18:11 10/09/16 18:11 10/09/16 18:11 10/09/16 18:11 10/09/16 18:11 - Physical Exam Comments: 10/09/16 20:55 GENERAL: Awake, alert, and fully oriented, in no acute distress HEAD: No signs of trauma, normocephalic, atraumatic EYES: PERRLA, EOMI, sclera anicteric, conjunctiva clear ENT: Auricles normal inspection, hearing grossly normal, nares patent, oropharynx clear without exudates. Moist mucosa NECK: Normal ROM, supple, no lymphadenopathy, JVD, or masses LUNGS: No distress, speaks full sentences, clear to auscultation bilaterally HEART: Regular rate and rhythm, normal S1 and S2, no murmurs, rubs or gallops, peripheral pulses normal and equal bilaterally. ABDOMEN: Soft, nontender, normoactive bowel sounds. No guarding, no rebound. No masses EXTREMITIES:+ Right knee anterior-lateral effusion and TTP at lateral patella. Knee exam difficult to obtain d/t pt. refusal and baseline dementia. + BL LE edema . No clubbing or cyanosis. NEUROLOGICAL: Cranial nerves II through XII grossly intact. Normal speech, normal gait, no focal sensorimotor deficits SKIN: Warm, Dry, normal turgor, no rashes or lesions noted. <Alvin Sandoval - Last Filed: 10/09/16 23:24> - Vital Signs Last Vital Signs Temp Pulse Resp BP Pulse Ox 98.5 F 73 18 158/59 95 10/10/16 03:15 10/10/16 02:17 10/10/16 02:17 10/10/16 02:17 10/10/16 02:17 <Ronel Mclaughlin - Last Filed: 10/10/16 04:00> ED Treatment Course - RADIOLOGY Radiology Studies Ordered: Category Date Time Status KNEE 3 POS-RIGHT [RAD] Stat Radiology 10/09/16 20:02 Ordered <Alvin Sandoval - Last Filed: 10/09/16 23:24> - LABORATORY CBC & Chemistry Diagram: 10/10/16 03:00 10/10/16 02:59 - ADDITIONAL ORDERS Additional order review: Laboratory Results 10/10/16 10/10/16 02:59 02:30 Sodium 142 Potassium 4.3 Chloride 105 Carbon Dioxide 28 Anion Gap 9 BUN 28 H D Creatinine 1.4 H Creat Clearance w eGFR 36.66 Random Glucose 125 H D Calcium 8.9 Total Bilirubin 0.1 L D AST 17 ALT 21 D Alkaline Phosphatase 128 H D Total Protein 6.8 Albumin 2.7 L Urine Color Yellow Urine Appearance Turbid Urine pH 5.0 Urine Protein 2+ H Urine Glucose (UA) 1+ H Urine Ketones Negative Urine Blood Negative Urine Nitrite Negative Urine Bilirubin Negative Urine Urobilinogen Negative Ur Leukocyte Esterase 2+ H Urine RBC None Urine WBC 3645 Urine Bacteria Many Urine Mucus Rare 10/10/16 03:00 RBC 3.94 MCV 88.0 MCHC 32.1 RDW 14.0 MPV 8.3 Neutrophils % Y Lymphocytes % Y - RADIOLOGY Radiology Studies Ordered: Category Date Time Status CHEST X-RAY PORTABLE* [RAD] Stat Radiology 10/10/16 02:35 Taken - Medications Given in the ED: ED Medications Discontinued Medications Generic Name Dose Route Start Last Admin Trade Name Freq PRN Reason Stop Dose Admin Acetaminophen 325 mg 10/09/16 20:07 10/09/16 20:55 Tylenol - PO 10/09/16 20:08 325 mg ONCE ONE Administration Acetaminophen 650 mg 10/09/16 20:55 10/09/16 20:55 Tylenol - PO 10/09/16 20:56 650 mg NOW ONE Administration Ceftriaxone Sodium 1 gm/ 50 mls @ 100 mls/hr 10/10/16 02:35 10/10/16 03:06 Dextrose IVPB 10/10/16 03:04 100 mls/hr ONCE ONE Administration Ketorolac Tromethamine 60 mg 10/09/16 23:51 10/10/16 00:11 Toradol Injection - IM 10/09/16 23:52 60 mg ONCE ONE Administration <Ronel Mclaughlin - Last Filed: 10/10/16 04:00> Medical Decision Making - Medical Decision Making 10/09/16 20:57 75 yo F with h/o dementia, HTN, and gout who presents with right knee pain and effusion. Pt. reports recent fall, but history is somewhat unreliable d/t cognitive deficits. Pt. refusing physical examination or ambulation. Obtain right plain radiograph to r/o patellar fracture or bony abnormality. Although absent focal motor/sensory deficits, pt. remains hypersomnolent throughout encounter and unable to assess baseline mental status. Consider hemorrhage 2/2 trauma or fall. ED Course: Knee 3 POS-RT Tylenol 325 mg 10/09/16 23:[address]- no acute intracranial pathology 10/09/16 23:50 Knee 3 POS-RT does not reveal fracture 10/09/16 23:51 60 mg IM Toradol <Alvin Sandoval - Last Filed: 10/09/16 23:24> *DC/Admit/Observation/Transfer <Alvin Sandoval - Last Filed: 10/09/16 23:24> - Discharge Dispostion Admit: Yes <Ronel Mclaughlin - Last Filed: 10/10/16 04:00> Diagnosis at time of Disposition: UTI (urinary tract infection) Qualifiers: Urinary tract infection type: site unspecified Hematuria presence: without hematuria Qualified Code(s): N39.0 - Urinary tract infection, site not specified - Discharge Dispostion Condition at time of disposition: Stable - Referrals Referrals: Gracie Cage MD [Primary Care Provider] -
--- NOTE | 2016-10-09 20:54 | PDOC ---
Attending Attestation - Resident Resident Name: Alvin Sandoval - HPI HPI: 10/09/16 20:52 75 yo female BIBA for rt knee pain that she has had all day. Caretakers did not see her fall, no apparent history of trauma -when the rt knee was palpated she yelled - Physicial Exam PE: 10/09/16 20:54 75 yo female who is sleeping but quickly awakens when you speak to her HEENT no signs of scalp trauma lungs cta b/l cvr [id number] abd-soft,nontender extremities + right knee is tender and sl swollen neuro pt is very poor historian but does states her rt knee hurts - Medical Decision Making 10/09/16 20:57 75 yo female PMH dementia,anemia,diabetes,HTN,hypercholesterlemia, hypothyroidism,psych history from residential facility for rt knee pain plan radiograph ,pain meds
[2016-10-09] MEDS ORDERED: KETOROLAC TROMETHAMINE 60 MG/2 ML VIAL IM ONE (23:51)
[2016-10-10] MEDS ORDERED: KETOROLAC TROMETHAMINE 60 MG/2 ML VIAL ONE (00:01)
[2016-10-10] MEDS ORDERED: CEFTRIAXONE 1 GM in DEXTROSE 5%-WATER - 50 ML IVPB ONE (02:35)
[2016-10-10 02:39] LABS: URINE APPEARANCE TURBID; URINE BILIRUBIN NEGATIVE (NEGATIVE); URINE BLOOD NEGATIVE (NEGATIVE); URINE COLOR YELLOW; URINE GLUCOSE (UA) 1+ (NEGATIVE); URINE KETONE NEGATIVE (NEGATIVE); URINE NITRITE NEGATIVE (NEGATIVE); URINE UROBILINOGEN NEGATIVE mg/dL (0.2-1.0)
[2016-10-10 02:41] LABS: URINE LEUK ESTERASE 2+ (NEGATIVE); URINE PROTEIN 2+ (NEGATIVE)
[2016-10-10 02:46] LABS: URINE BACTERIA MANY /hpf (NONE SEEN); URINE MUCUS RARE; URINE WBC 3645 /hpf (3-5)
[2016-10-10] MEDS ORDERED: CEFTRIAXONE 50 ML ONE (03:07)
[2016-10-10 03:14] LABS: MCH 28.3 pg (25.7-33.7); MCHC 32.1 g/dl (32.0-36.0); MEAN PLT VOLUME 8.3 fl (7.5-11.1); PLATELET COUNT 335 K/MM3 (134-434)
--- NOTE | 2016-10-10 03:14 | PDOC ---
*Physical Exam - Vital Signs Last Vital Signs Temp Pulse Resp BP Pulse Ox 97.6 F 73 18 158/59 95 10/09/16 18:11 10/10/16 02:17 10/10/16 02:17 10/10/16 02:17 10/10/16 02:17 Heart Score/ECG Review - ECG Impressions Comment:: EKG read 03:06- NSR 68 bpm, no acute ST/T changes ED Treatment Course - LABORATORY CBC & Chemistry Diagram: 10/10/16 03:00 10/10/16 02:59 - ADDITIONAL ORDERS Additional order review: Laboratory Results 10/10/16 02:30 Urine Color Yellow Urine Appearance Turbid Urine pH 5.0 Urine Protein 2+ H Urine Glucose (UA) 1+ H Urine Ketones Negative Urine Blood Negative Urine Nitrite Negative Urine Bilirubin Negative Urine Urobilinogen Negative Ur Leukocyte Esterase 2+ H Urine RBC None Urine WBC 3645 Urine Bacteria Many Urine Mucus Rare - RADIOLOGY Radiology Studies Ordered: Category Date Time Status CHEST X-RAY PORTABLE* [RAD] Stat Radiology 10/10/16 02:35 Taken - Medications Given in the ED: ED Medications Discontinued Medications Generic Name Dose Route Start Last Admin Trade Name Freq PRN Reason Stop Dose Admin Acetaminophen 325 mg 10/09/16 20:07 10/09/16 20:55 Tylenol - PO 10/09/16 20:08 325 mg ONCE ONE Administration Acetaminophen 650 mg 10/09/16 20:55 10/09/16 20:55 Tylenol - PO 10/09/16 20:56 650 mg NOW ONE Administration Ceftriaxone Sodium 1 gm/ 50 mls @ 100 mls/hr 10/10/16 02:35 10/10/16 03:06 Dextrose IVPB 10/10/16 03:04 100 mls/hr ONCE ONE Administration Ketorolac Tromethamine 60 mg 10/09/16 23:51 10/10/16 00:11 Toradol Injection - IM 10/09/16 23:52 60 mg ONCE ONE Administration Medical Decision Making - Medical Decision Making 10/10/16 03:14 Patient endorsed to me by Dr. Dennis at 2 am shift change. Patient initially presented with knee pain, refusing to walk. However, her behavior was aggressive , which apparently is a change in her mental status. Urine was obtained a few moments ago, and it is grossly purulent. Will obtain labs and admit for UTI. *DC/Admit/Observation/Transfer Diagnosis at time of Disposition: UTI (urinary tract infection) Qualifiers: Urinary tract infection type: site unspecified Hematuria presence: without hematuria Qualified Code(s): N39.0 - Urinary tract infection, site not specified - Discharge Dispostion Condition at time of disposition: Stable - Referrals Referrals: Gracie Cage MD [Primary Care Provider] -
[2016-10-10 03:33] LABS: ALBUMIN 2.7 g/dl (3.4-5.0); ANION GAP 9 (8-16); BILIRUBIN,TOTAL 0.1 mg/dL (0.2-1.0); CALCIUM 8.9 mg/dL (8.5-10.1); CO2 28 mmol/L (21-32); CREATININE 1.4 mg/dL (0.55-1.02); GLUCOSE,RANDOM 125 mg/dL (74-106); SGOT/AST 17 U/L (15-37); SGPT/ALT 21 U/L (12-78); TOT PROT 6.8 g/dl (6.4-8.2)
[2016-10-10 03:34] LABS: ALK PHOS 128 U/L (45-117)
--- NOTE | 2016-10-10 05:03 | HP ---
CHIEF COMPLAINT: Right knee pain PCP: [facility] HISTORY OF PRESENT ILLNESS: This is a 75 year old female with a past medical history of dementia, HTN, gout , hypothyroidism, DM, HLD, depression who presented to the ED with right knee pain. She informed the ER of a recent fall in which she injured multiple parts of her body; however, the ED called her assisted living facility who did not confirm same, and they know of no recent fall. Upon exam, pt is confused and is extremely limited in her ability to provide ROS. She is unable to accurately answer simple yes / no questions. When asked if she ever smoked, she informed personal lines underwriter that she quit. When asked how old she was when she quit, she promptly replied with "5." She then told me that she only smoked candy cigarettes and that she had to quit because she is allergic to licorice. Similar nonsensical conversations were had throughout exam. History is primarily taken from the ED and CUSTODIAL charts. ER course was notable for: (1) WBC 14.0 (2) u/a c/w UTI Recent Travel: unknown, but doubtful PAST MEDICAL HISTORY: Dementia HTN HLD hypothyroidism DM Depression PAST SURGICAL HISTORY: Left cataract surgery Social History: Smoking: unclear Alcohol: unclear Drugs: unclear Family History: unable to obtain Allergies ИРИНА Inhibitors Allergy (Unknown, Verified 10/09/16 18:18) Sulfa (Sulfonamide Antibiotics) Allergy (Unknown, Verified 10/09/16 18:18) HOME MEDICATIONS: 3 Medication Instructions Recorded Allopurinol [Zyloprim -] 100 mg PO DAILY 05/21/16 Amlodipine Besylate 10 mg PO DAILY 05/21/16 Carvedilol [Coreg -] 25 mg PO DAILY 05/21/16 Cyanocobalamin (Vitamin B-12) 1,000 mcg PO DAILY 05/21/16 [Vitamin B-12] Estrogens,Conjugated [Premarin -] 0.3 mg PO DAILY 05/21/16 Ezetimibe [Zetia] 10 mg PO DAILY 05/21/16 Folic Acid 0.4 mg PO DAILY 05/21/16 Insulin (Levemir) [Levemir Flexpen 32 units SQ TID 05/21/16 -] Insulin Lispro [Humalog] 0 unit SQ ASDIR 05/21/16 Levothyroxine [Synthroid -] 100 mcg PO DAILY 05/21/16 Losartan Potassium 100 mg PO DAILY 05/21/16 Medroxyprogesterone Acetate 2.5 mg PO DAILY 05/21/16 Trazodone HCl 50 mg PO HS 05/21/16 Cyanocobalamin [Vitamin B12 -] 1,000 mcg PO DAILY 10/10/16 Furosemide [Lasix -] 20 mg PO DAILY 10/10/16 Gabapentin 100 mg PO TID 10/10/16 REVIEW OF SYSTEMS CONSTITUTIONAL: Absent: fever, chills, diaphoresis, generalized weakness, malaise, loss of appetite, weight change HEENT: Absent: rhinorrhea, nasal congestion, throat pain, throat swelling, difficulty swallowing, mouth swelling, ear pain, eye pain, visual changes CARDIOVASCULAR: Absent: chest pain, syncope, palpitations, irregular heart rate, lightheadedness , peripheral edema RESPIRATORY: Absent: cough, shortness of breath, dyspnea with exertion, orthopnea, wheezing, stridor, hemoptysis GASTROINTESTINAL: Absent: abdominal pain, abdominal distension, nausea, vomiting, diarrhea, constipation, melena, hematochezia GENITOURINARY: Absent: dysuria, frequency, urgency, hesitancy, hematuria, flank pain, genital pain MUSCULOSKELETAL: Present: Right knee pain Absent: myalgia, arthralgia, joint swelling, back pain, neck pain SKIN: Absent: rash, itching, pallor HEMATOLOGIC/IMMUNOLOGIC: Absent: easy bleeding, easy bruising, lymphadenopathy, frequent infections ENDOCRINE: Absent: unexplained weight gain, unexplained weight loss, heat intolerance, cold intolerance NEUROLOGIC: Absent: headache, focal weakness or paresthesias, dizziness, unsteady gait, seizure, mental status changes, bladder or bowel incontinence PSYCHIATRIC: Present: Increased agitation and calling out Absent: anxiety, depression, suicidal or homicidal ideation, hallucinations. PHYSICAL EXAMINATION Vital Signs - 24 hr 3 10/09/16 10/10/16 10/10/16 18:11 02:17 03:15 Temperature 97.6 F 98.5 F Pulse Rate 72 Pulse Rate [ 73 Right] Respiratory 18 18 Rate Blood Pressure 134/77 Blood Pressure 158/59 [Left Arm] O2 Sat by Pulse 100 95 Oximetry (%) GENERAL: Awake, alert, and fully oriented, in no acute distress. HEAD: Normal with no signs of trauma. EYES: Pupils equal, round and reactive to light, extraocular movements intact, sclera anicteric, conjunctiva clear. No lid lag. EARS, NOSE, THROAT: Ears normal, nares patent, oropharynx clear without exudates. Moist mucous membranes. NECK: Normal range of motion, supple without lymphadenopathy, JVD, or masses. LUNGS: Breath sounds equal, clear to auscultation bilaterally. No wheezes, and no crackles. No accessory muscle use. HEART: Regular rate and rhythm, normal S1 and S2 without murmur, rub or gallop. ABDOMEN: Soft, nontender, not distended, normoactive bowel sounds, no guarding, no rebound, no masses. No hepatomegaly or splenomegaly. MUSCULOSKELETAL: Normal range of motion at all joints except right knee. No bony deformities or tenderness. No CVA tenderness. decreased ROM right knee due to pain, no excessive warmth, no erythema, mild swelling. UPPER EXTREMITIES: 2+ pulses, warm, well-perfused. No cyanosis. No clubbing. No peripheral edema. LOWER EXTREMITIES: 2+ pulses, warm, well-perfused. No calf tenderness. No peripheral edema. NEUROLOGICAL: Cranial nerves II-XII intact. Normal speech. Normal gait. PSYCHIATRIC: Cooperative. Good eye contact. Appropriate mood and affect. SKIN: Warm, dry, normal turgor, no rashes noted, normal capillary refill. abrasion noted right wiggins Laboratory Results - last 24 hr 3 10/10/16 10/10/16 10/10/16 02:30 02:59 03:00 WBC 14.0 H RBC 3.94 Hgb 11.2 Hct 34.7 MCV 88.0 MCH 28.3 MCHC 32.1 RDW 14.0 Plt Count 335 D MPV 8.3 Neutrophils % Y Lymphocytes % Y Sodium 142 Potassium 4.3 Chloride 105 Carbon Dioxide 28 Anion Gap 9 BUN 28 H D Creatinine 1.4 H Creat Clearance w eGFR 36.66 Random Glucose 125 H D Calcium 8.9 Total Bilirubin 0.1 L D AST 17 ALT 21 D Alkaline Phosphatase 128 H D Total Protein 6.8 Albumin 2.7 L Urine Color Yellow Urine Appearance Turbid Urine pH 5.0 Urine Protein 2+ H Urine Glucose (UA) 1+ H Urine Ketones Negative Urine Blood Negative Urine Nitrite Negative Urine Bilirubin Negative Urine Urobilinogen Negative Ur Leukocyte Esterase 2+ H Urine RBC None Urine WBC 3645 Urine Bacteria Many Urine Mucus Rare Radiology Reports: CT/HEAD CT WITHOUT CONTRAST Cranial CT without contrast Clinical information: lethargy No intracranial hemorrhage is seen. There is no discrete infarct within the limitations of CT. No gross mass lesion is identified. There is no extra-axial fluid collection Involutional changes are noted with corresponding mild ventricular dilatation. Impression: No CT evidence of acute intracranial pathology. Reported By: Buck Hurst MD 10/09/160 CXR pending ECG: NSR, rate 68 QTC [address]/T changes ASSESSMENT/PLAN: 75yF with PMH dementia, HTN, HLD, gout, hypothyroid, diabetes, depression [facility] with increased agitation , screaming and c/o right knee pain. Subsequent workup revealed UTI and she is being admitted for same. UTI - cont ceftriaxone 1g daily - follow urine cultures, all previous urine cultures from here with no growth. azotemia - BUN and Cr with slight bump from baseline. Will give gentle hydration and repeat labs tomorrow. HTN - cont home cozaar HLD - cont home zetia DM - unclear if pt is on levemir at home, previous visits with levemir on med list, however, chart today from [facility] [place] without levemir on med list. Attempted to call [facility], but no answer, will need f/u in am. - BGM TIDAC/HS with novolog SS coverage. Hypothyroid - cont home synthroid Gout - cont home allopurinol DVT PPX - heparin 5000u BID FEN - NS @ 75cc/hr x 1 liter Advanced directives: Pt is a DNR/DNI and does not want a feeding tube as per [facility] Dispo: Pt currently requires inpatient management of her emergent condition. Visit type - Emergency Visit Emergency Visit: Yes ED Registration Date: 10/09/16 Care time: The patient presented to the Emergency Department on the above date and was hospitalized for further evaluation of their emergent condition. - New Patient This patient is new to me today: Yes Date on this admission: 10/10/16 - Critical Care Critical Care patient: No
[2016-10-10] MEDS ORDERED: traZODone HCL 50 MG TABLET (FP) PO PRN (05:05)
[2016-10-10] MEDS ORDERED: SODIUM CHLORIDE 1,000 ML IV SCH (05:15)
[2016-10-10] MEDS ORDERED: GABAPENTIN 100 MG CAPSULE (FP) ONE (05:42)
[2016-10-10] MEDS ORDERED: LEVOTHYROXINE NA 25 MCG TABLET (FP) ONE (05:42)
[2016-10-10] MEDS: GABAPENTIN 100 MG CAPSULE (FP) PO SCH ×3 (05:57→21:08)
[2016-10-10] MEDS: INSULIN SLIDING SCALE (NOVOLOG) 1 VIAL SQ SCH ×4 (06:02→21:16)
[2016-10-10] MEDS: LEVOTHYROXINE NA 112 MCG TABLET (FP) PO SCH (06:03)
[2016-10-10 06:07] LABS: PLATELET ESTIMATE ADEQUATE (NORMAL)
[2016-10-10] MEDS: CARVEDILOL 25 MG TABLET (FP) PO SCH ×2 (09:53→21:08)
[2016-10-10] MEDS: LOSARTAN POTASSIUM 50 MG TABLET (FP) PO SCH (09:53)
[2016-10-10] MEDS: FOLIC ACID 1 MG TABLET (FP) PO SCH (09:53)
[2016-10-10] MEDS: FUROSEMIDE 20 MG TABLET (FP) PO SCH (09:54)
[2016-10-10] MEDS: amLODIPine BESYLATE 10 MG TABLET (FP) PO SCH (09:54)
[2016-10-10] MEDS: HEPARIN NA (PORCINE) 5,000 UNITS/ML 1ML VIAL SQ SCH ×2 (09:54→21:09)
[2016-10-10] MEDS: ESTROGENS,CONJUGATED 0.3 MG TABLET PO SCH (09:55)
[2016-10-10] MEDS: ALLOPURINOL 100 MG TABLET (FP) PO SCH (09:55)
[2016-10-10] MEDS: CYANOCOBALAMIN 1,000 MCG TABLET (FP) PO SCH (09:55)
[2016-10-10] MEDS: EZETIMIBE 10 MG TABLET (FP) PO SCH (09:55)
[2016-10-10] MEDS: PNEUMOC 13-VAL CONJ-DIP CRM/PF 0.5 ML DISP.SYRIN IM ONE ×2 (12:56→13:08)
--- NOTE | 2016-10-10 16:22 | EKG ---
Test Reason : Blood Pressure : / mmHG Vent. Rate : 068 BPM Atrial Rate : 068 BPM P-R Int : 172 ms QRS Dur : 092 ms QT Int : 448 ms P-R-T Axes : 047 -44 068 degrees QTc Int : 476 ms POOR DATA QUALITY, INTERPRETATION MAY BE ADVERSELY AFFECTED NORMAL SINUS RHYTHM LEFT ANTERIOR KANDICE BLOCK MINIMAL VOLTAGE CRITERIA FOR LVH, MAY BE NORMAL VARIANT ANTEROLATERAL INFARCT (CITED ON OR BEFORE 09-MAY-2016) ABNORMAL ECG WHEN COMPARED WITH ECG OF 09-SEP-2016 15:23, NO SIGNIFICANT CHANGE WAS FOUND Confirmed by KIRAN STEEL MD ([id number]) on 10/10/2016 4:21:53 PM Referred By: Confirmed By:KIRAN STEEL MD
[2016-10-10] MEDS ORDERED: INSULIN (NOVOLOG) ASPART 100 UNITS/ML 10ML VIAL ONE (21:16)
[2016-10-10] MEDS ORDERED: cefTRIAXone 1 GM/50 ML BAG (PRE-DOCKED) IVPB SCH (22:00)
[2016-10-11] MEDS: GABAPENTIN 100 MG CAPSULE (FP) PO SCH ×3 (05:47→21:52)
[2016-10-11] MEDS: LEVOTHYROXINE NA 112 MCG TABLET (FP) PO SCH (05:59)
[2016-10-11] MEDS: INSULIN SLIDING SCALE (NOVOLOG) 1 VIAL SQ SCH ×4 (06:15→21:52)
[2016-10-11 08:22] LABS: MCHC 32.6 g/dl (32.0-36.0); MEAN CELL VOLUME 88.8 fl (80-96); MEAN PLT VOLUME 8.4 fl (7.5-11.1); PLATELET COUNT 338 K/MM3 (134-434); RDW 14.1 % (11.6-15.6); WHITE BLOOD COUNT 12.2 K/mm3 (4.0-10.0)
[2016-10-11 08:23] LABS: ANION GAP 6 (8-16); CALCIUM 8.9 mg/dL (8.5-10.1); CO2 30 mmol/L (21-32); GLUCOSE,RANDOM 200 mg/dL (74-106); MAGNESIUM 2.1 mg/dL (1.8-2.4)
[2016-10-11] MEDS ORDERED: PT OWN MED DRAWER 7, Y5N ONE ×2 (10:35→11:26)
[2016-10-11] MEDS: CARVEDILOL 25 MG TABLET (FP) PO SCH ×2 (10:36→21:53)
[2016-10-11] MEDS: LOSARTAN POTASSIUM 50 MG TABLET (FP) PO SCH (10:36)
[2016-10-11] MEDS: ALLOPURINOL 100 MG TABLET (FP) PO SCH (10:36)
[2016-10-11] MEDS: FUROSEMIDE 20 MG TABLET (FP) PO SCH (10:36)
[2016-10-11] MEDS: CYANOCOBALAMIN 1,000 MCG TABLET (FP) PO SCH (10:36)
[2016-10-11] MEDS: amLODIPine BESYLATE 10 MG TABLET (FP) PO SCH (10:36)
[2016-10-11] MEDS: FOLIC ACID 1 MG TABLET (FP) PO SCH (10:37)
[2016-10-11] MEDS: HEPARIN NA (PORCINE) 5,000 UNITS/ML 1ML VIAL SQ SCH ×2 (10:42→21:51)
[2016-10-11] MEDS: EZETIMIBE 10 MG TABLET (FP) PO SCH (10:43)
[2016-10-11] MEDS: ESTROGENS,CONJUGATED 0.3 MG TABLET PO SCH (10:43)
[2016-10-11] MEDS ORDERED: INSULIN (NOVOLOG) ASPART 100 UNITS/ML 10ML VIAL ONE ×2 (12:08→17:55)
--- NOTE | 2016-10-11 14:18 | PN ---
Progress Note (short form) - Note Progress Note: Subjective: The patient was seen and examined at the bedside, she is A&Ox1 only (person). She states she would like to nap in the chair. Current Medications Generic Name Dose Route Start Last Admin Trade Name Nemo PRN Reason Stop Dose Admin Allopurinol 100 mg 10/10/16 10:00 10/11/16 10:36 Zyloprim - PO 100 mg DAILY VICENTE Administration Amlodipine Besylate 10 mg 10/10/16 10:00 10/11/16 10:36 Norvasc - PO 10 mg DAILY VICENTE Administration Carvedilol 25 mg 10/10/16 10:00 10/11/16 10:36 Coreg - PO 25 mg BID VICENTE Administration Cyanocobalamin 1,000 mcg 10/10/16 10:00 10/11/16 10:36 Vitamin B12 - PO 1,000 mcg DAILY VICENTE Administration Ezetimibe 10 mg 10/10/16 10:00 10/11/16 10:43 Zetia - PO 10 mg DAILY VICENTE Administration Estrogens Conjugated 0.3 mg 10/10/16 10:00 10/11/16 10:43 Premarin - PO 0.3 mg DAILY VICENTE Administration Folic Acid 0.5 mg 10/10/16 10:00 10/11/16 10:37 Folic Acid - PO 0.5 mg DAILY VICENTE Administration Furosemide 20 mg 10/10/16 10:00 10/11/16 10:36 Lasix - PO 20 mg DAILY VICENTE Administration Gabapentin 100 mg 10/10/16 06:00 10/11/16 14:35 Neurontin - PO 100 mg TID VICENTE Administration Heparin Sodium (Porcine) 5,000 unit 10/10/16 10:00 10/11/16 10:42 Heparin - SQ 5,000 unit BID VICENTE Administration Ceftriaxone Sodium 1 gm/ 50 mls @ 100 mls/hr 10/11/16 22:00 Dextrose IVPB HS VICENTE Insulin Aspart 1 vial 10/10/16 07:00 10/11/16 12:14 Novolog Vial Sliding Scale - SQ 5 units ACHS VICENTE Administration Protocol Insulin Detemir 32 units 10/11/16 22:00 Levemir Vial SQ BID VICENTE Levothyroxine Sodium 112 mcg 10/10/16 07:00 10/11/16 05:59 Synthroid - PO 112 mcg DAILY@0700 VICENTE Administration Losartan Potassium 100 mg 10/10/16 10:00 10/11/16 10:36 Cozaar - PO 100 mg DAILY VICENTE Administration Medroxyprogesterone Acetate 2.5 mg 10/10/16 10:00 10/11/16 10:43 Provera - PO 2.5 mg DAILY VICENTE Administration Trazodone HCl 50 mg 10/10/16 05:05 Desyrel - PO HS PRN INSOMNIA Objective: Vital Signs Period Temp Pulse Resp BP Sys/Glynn Pulse Ox Last 24 Hr 98.2 F-99.1 F 70-80 16-20 133-168/57-76 94-96 Physical Exam: General: NAD, A&Ox1 Patient refused remainder of exam CBCD WBC 12.2 K/mm3 (4.0-10.0) H 10/11/16 06:30 RBC 3.82 M/mm3 (3.60-5.2) 10/11/16 06:30 Hgb 11.1 GM/dL (10.7-15.3) 10/11/16 06:30 Hct 33.9 % (32.4-45.2) 10/11/16 06:30 MCV 88.8 fl (80-96) 10/11/16 06:30 MCHC 32.6 g/dl (32.0-36.0) 10/11/16 06:30 RDW 14.1 % (11.6-15.6) 10/11/16 06:30 Plt Count 338 K/MM3 (134-434) 10/11/16 06:30 MPV 8.4 fl (7.5-11.1) 10/11/16 06:30 CMP Sodium 141 mmol/L (136-145) 10/11/16 06:30 Potassium 4.7 mmol/L (3.5-5.1) 10/11/16 06:30 Chloride 105 mmol/L (98-107) 10/11/16 06:30 Carbon Dioxide 30 mmol/L (21-32) 10/11/16 06:30 Anion Gap 6 (8-16) L 10/11/16 06:30 BUN 20 mg/dL (7-18) H D 10/11/16 06:30 Creatinine 1.0 mg/dL (0.55-1.02) D 10/11/16 06:30 Creat Clearance w eGFR 36.66 (>60) 10/10/16 02:59 Random Glucose 200 mg/dL (74-106) H D 10/11/16 06:30 Calcium 8.9 mg/dL (8.5-10.1) 10/11/16 06:30 Total Bilirubin 0.1 mg/dL (0.2-1.0) L D 10/10/16 02:59 AST 17 U/L (15-37) 10/10/16 02:59 ALT 21 U/L (12-78) D 10/10/16 02:59 Alkaline Phosphatase 128 U/L (45-117) H D 10/10/16 02:59 Total Protein 6.8 g/dl (6.4-8.2) 10/10/16 02:59 Albumin 2.7 g/dl (3.4-5.0) L 10/10/16 02:59 Microbiology 10/10/16 02:20 Urine - Urine - Catheterized Urine Culture - Preliminary Lactose Fermenting Neg Bacilli 10/10/16 03:00 Blood - Peripheral Venous Blood Culture - Preliminary NO GROWTH OBTAINED AFTER 24 HOURS, INCUBATION TO CONTINUE FOR 4 DAYS. 10/10/16 02:45 Blood - Peripheral Venous Blood Culture - Preliminary NO GROWTH OBTAINED AFTER 24 HOURS, INCUBATION TO CONTINUE FOR 4 DAYS. Assessment: This is a 75 year old female with PMHx of dementia, HTN, hyperlipidemia, diabetes, depression, who presented to the ED from [facility] for agitation screaming she had right knee pain. Plan: 1) ID: UTI - Continue Ceftriaxone - Bandemia: f/u cbc with diff tomorrow - F/u final c/s - WBC trending down 2) Endocrine: DM - Called [facility] and spoke to Samantha Garber, the patient takes 32u Levemir bid, will restart - ISS ACHS - BGM ACHS Hypothyroidism - Continue Synthroid 3) MSK: Right knee pain - X-ray with no acute fracture or process - Patient refused to let me palpate her knee today 4) Cardiology: HTN - Continue Coreg - Continue Cozaar - Continue Lasix - Continue Norvasc Hyperlipidemia - Zetia 5) F/E/N: - Sodium controlled diabetic diet - Monitor electrolytes 6) Prophylaxis: - Heparin 5,000u sq bid - PT evaluation 7) Dispo: - Requires continued inpatient care CODE STATUS: DNR/DNI Visit type - Emergency Visit Emergency Visit: Yes ED Registration Date: 10/10/16 Care time: The patient presented to the Emergency Department on the above date and was hospitalized for further evaluation of their emergent condition. - New Patient This patient is new to me today: Yes Date on this admission: 10/11/16 - Critical Care Critical Care patient: No
[2016-10-11 16:01] LABS: MCH 28.7 pg (25.7-33.7); MCHC 32.3 g/dl (32.0-36.0); MEAN CELL VOLUME 88.9 fl (80-96); MEAN PLT VOLUME 8.5 fl (7.5-11.1); PLATELET COUNT 393 K/MM3 (134-434); RDW 14.4 % (11.6-15.6); WHITE BLOOD COUNT 12.4 K/mm3 (4.0-10.0)
[2016-10-11] MEDS ORDERED: DEXTROSE 5%-WATER - 50 ML IVPB ONE (21:25)
[2016-10-11] MEDS ORDERED: cefTRIAXone SODIUM 1 GM VIAL ONE (21:25)
[2016-10-11] MEDS: INSULIN DETEMIR 100 UNITS/ML MDV SQ SCH (21:51)
[2016-10-11] MEDS ORDERED: CEFTRIAXONE 1 GM in DEXTROSE 5%-WATER - 50 ML IVPB SCH (22:00)
[2016-10-12] MEDS: GABAPENTIN 100 MG CAPSULE (FP) PO SCH ×3 (06:11→21:36)
[2016-10-12] MEDS: LEVOTHYROXINE NA 112 MCG TABLET (FP) PO SCH (06:11)
[2016-10-12] MEDS: INSULIN SLIDING SCALE (NOVOLOG) 1 VIAL SQ SCH ×4 (06:12→21:37)
[2016-10-12] MEDS ORDERED: INSULIN (NOVOLOG) ASPART 100 UNITS/ML 10ML VIAL ONE ×2 (07:14→21:33)
[2016-10-12 08:19] LABS: MCH 28.8 pg (25.7-33.7); MCHC 32.8 g/dl (32.0-36.0); MEAN CELL VOLUME 87.7 fl (80-96); MEAN PLT VOLUME 8.2 fl (7.5-11.1); PLATELET COUNT 345 K/MM3 (134-434); RDW 14.3 % (11.6-15.6); WHITE BLOOD COUNT 11.8 K/mm3 (4.0-10.0)
[2016-10-12 08:28] LABS: ALBUMIN 2.5 g/dl (3.4-5.0); ANION GAP 9 (8-16); CALCIUM 8.9 mg/dL (8.5-10.1); CO2 27 mmol/L (21-32); GLUCOSE,RANDOM 151 mg/dL (74-106)
[2016-10-12 08:34] LABS: ALK PHOS 109 U/L (45-117); BILIRUBIN,TOTAL 0.3 mg/dL (0.2-1.0); SGOT/AST 15 U/L (15-37); SGPT/ALT 16 U/L (12-78); TOT PROT 6.4 g/dl (6.4-8.2)
[2016-10-12] MEDS: CYANOCOBALAMIN 1,000 MCG TABLET (FP) PO SCH (09:33)
[2016-10-12] MEDS: FOLIC ACID 1 MG TABLET (FP) PO SCH (09:33)
[2016-10-12] MEDS: EZETIMIBE 10 MG TABLET (FP) PO SCH (09:33)
[2016-10-12] MEDS: CARVEDILOL 25 MG TABLET (FP) PO SCH ×2 (09:34→21:36)
[2016-10-12] MEDS: HEPARIN NA (PORCINE) 5,000 UNITS/ML 1ML VIAL SQ SCH ×2 (09:35→21:36)
[2016-10-12] MEDS: LOSARTAN POTASSIUM 50 MG TABLET (FP) PO SCH (09:35)
[2016-10-12] MEDS: ALLOPURINOL 100 MG TABLET (FP) PO SCH (09:35)
[2016-10-12] MEDS: FUROSEMIDE 20 MG TABLET (FP) PO SCH (09:35)
[2016-10-12] MEDS: amLODIPine BESYLATE 10 MG TABLET (FP) PO SCH (09:35)
[2016-10-12] MEDS ORDERED: PT OWN MED DRAWER 7, Y5N ONE (09:37)
[2016-10-12] MEDS: ESTROGENS,CONJUGATED 0.3 MG TABLET PO SCH (09:39)
--- NOTE | 2016-10-12 09:55 | PN ---
Progress Note (short form) - Note Progress Note: Subjective: The patient was seen and examined at the bedside, she is A&Ox1 only (person). Urine culture with ESBL Current Medications Generic Name Dose Route Start Last Admin Trade Name Nemo PRN Reason Stop Dose Admin Allopurinol 100 mg 10/10/16 10:00 10/12/16 09:35 Zyloprim - PO 100 mg DAILY VICENTE Administration Amlodipine Besylate 10 mg 10/10/16 10:00 10/12/16 09:35 Norvasc - PO 10 mg DAILY VICENTE Administration Carvedilol 25 mg 10/10/16 10:00 10/12/16 09:34 Coreg - PO 25 mg BID VICENTE Administration Cyanocobalamin 1,000 mcg 10/10/16 10:00 10/12/16 09:33 Vitamin B12 - PO 1,000 mcg DAILY VICENTE Administration Ezetimibe 10 mg 10/10/16 10:00 10/12/16 09:33 Zetia - PO 10 mg DAILY VICENTE Administration Estrogens Conjugated 0.3 mg 10/10/16 10:00 10/12/16 09:39 Premarin - PO 0.3 mg DAILY VICENTE Administration Folic Acid 0.5 mg 10/10/16 10:00 10/12/16 09:33 Folic Acid - PO 0.5 mg DAILY VICENTE Administration Furosemide 20 mg 10/10/16 10:00 10/12/16 09:35 Lasix - PO 20 mg DAILY VICENTE Administration Gabapentin 100 mg 10/10/16 06:00 10/12/16 06:11 Neurontin - PO 100 mg TID VICENTE Administration Heparin Sodium (Porcine) 5,000 unit 10/10/16 10:00 10/12/16 09:35 Heparin - SQ 5,000 unit BID VICENTE Administration Ertapenem 1 gm/ Sodium 50 mls @ 50 mls/hr 10/12/16 10:00 Chloride IVPB DAILY VICENTE Protocol Insulin Aspart 1 vial 10/10/16 07:00 10/12/16 06:12 Novolog Vial Sliding Scale - SQ 2 units ACHS VICENTE Administration Protocol Insulin Detemir 32 units 10/11/16 22:00 10/11/16 21:51 Levemir Vial SQ 32 unit BID VICENTE Administration Levothyroxine Sodium 112 mcg 10/10/16 07:00 10/12/16 06:11 Synthroid - PO 112 mcg DAILY@0700 VICENTE Administration Losartan Potassium 100 mg 10/10/16 10:00 10/12/16 09:35 Cozaar - PO 100 mg DAILY VICENTE Administration Medroxyprogesterone Acetate 2.5 mg 10/10/16 10:00 10/12/16 09:39 Provera - PO 2.5 mg DAILY VICENTE Administration Trazodone HCl 50 mg 10/10/16 05:05 Desyrel - PO HS PRN INSOMNIA Objective: Vital Signs Period Temp Pulse Resp BP Sys/Glynn Pulse Ox Last 24 Hr 98.2 F-98.9 F 70-92 16-20 115-146/55-66 94 Physical Exam: General: NAD, A&Ox1 Patient refused remainder of exam CBCD WBC 11.8 K/mm3 (4.0-10.0) H 10/12/16 06:30 RBC 3.78 M/mm3 (3.60-5.2) 10/12/16 06:30 Hgb 10.9 GM/dL (10.7-15.3) 10/12/16 06:30 Hct 33.2 % (32.4-45.2) 10/12/16 06:30 MCV 87.7 fl (80-96) 10/12/16 06:30 MCHC 32.8 g/dl (32.0-36.0) 10/12/16 06:30 RDW 14.3 % (11.6-15.6) 10/12/16 06:30 Plt Count 345 K/MM3 (134-434) 10/12/16 06:30 MPV 8.2 fl (7.5-11.1) 10/12/16 06:30 CMP Sodium 141 mmol/L (136-145) 10/12/16 06:30 Potassium 4.1 mmol/L (3.5-5.1) 10/12/16 06:30 Chloride 105 mmol/L (98-107) 10/12/16 06:30 Carbon Dioxide 27 mmol/L (21-32) 10/12/16 06:30 Anion Gap 9 (8-16) 10/12/16 06:30 BUN 19 mg/dL (7-18) H 10/12/16 06:30 Creatinine 1.0 mg/dL (0.55-1.02) 10/12/16 06:30 Creat Clearance w eGFR 54.05 (>60) 10/12/16 06:30 Random Glucose 151 mg/dL (74-106) H D 10/12/16 06:30 Calcium 8.9 mg/dL (8.5-10.1) 10/12/16 06:30 Total Bilirubin 0.3 mg/dL (0.2-1.0) D 10/12/16 06:30 AST 15 U/L (15-37) 10/12/16 06:30 ALT 16 U/L (12-78) D 10/12/16 06:30 Alkaline Phosphatase 109 U/L (45-117) 10/12/16 06:30 Total Protein 6.4 g/dl (6.4-8.2) 10/12/16 06:30 Albumin 2.5 g/dl (3.4-5.0) L 10/12/16 06:30 Microbiology 10/10/16 02:20 Urine - Urine - Catheterized Urine Culture - Final Escherichia Coli Esbl Channel Director 10/10/16 03:00 Blood - Peripheral Venous Blood Culture - Preliminary NO GROWTH OBTAINED AFTER 48 HOURS, INCUBATION TO CONTINUE FOR 3 DAYS. 10/10/16 02:45 Blood - Peripheral Venous Blood Culture - Preliminary NO GROWTH OBTAINED AFTER 48 HOURS, INCUBATION TO CONTINUE FOR 3 DAYS. Assessment: This is a 75 year old female with PMHx of dementia, HTN, hyperlipidemia, diabetes, depression, who presented to the ED from [facility] for agitation screaming she had right knee pain. Plan: 1) ID: ESBL UTI - Discontinue Ceftriaxone - Start Ertapenem - F/u ID consult for abx approval 2) Endocrine: DM - Called [facility] and spoke to Samantha Garber, the patient takes 32u Levemir bid, will restart - ISS ACHS - BGM ACHS Hypothyroidism - Continue Synthroid 3) MSK: Right knee pain - X-ray with no acute fracture or process - Patient refused to let me palpate her knee today 4) Cardiology: HTN - Continue Coreg - Continue Cozaar - Continue Lasix - Continue Norvasc Hyperlipidemia - Zetia 5) F/E/N: - Sodium controlled diabetic diet - Monitor electrolytes 6) Prophylaxis: - Heparin 5,000u sq bid - PT evaluation 7) Dispo: - Requires continued inpatient care - Lives in assisted living, only walked 20ft, may benefit from SNF, discussed with behavioral health case managerSonia CODE STATUS: DNR/DNI Visit type - Emergency Visit Emergency Visit: Yes ED Registration Date: 10/10/16 Care time: The patient presented to the Emergency Department on the above date and was hospitalized for further evaluation of their emergent condition. - New Patient This patient is new to me today: No - Critical Care Critical Care patient: No
[2016-10-12] MEDS ORDERED: ERTAPENEM SODIUM 1 GM in SODIUM CHLORIDE 50 ML IVPB SCH (10:00)
[2016-10-12 10:42] LABS: PLATELET ESTIMATE ADEQUATE (NORMAL)
--- NOTE | 2016-10-12 11:28 | PN ---
Progress Note (short form) - Note Progress Note: ID Consult dictated Uncomplicated UTI-ESBL Leukocytosis- improved Sulfa allergy OBS Start nitrofurantoin po x 7d
[2016-10-12] MEDS: INSULIN DETEMIR 100 UNITS/ML MDV SQ SCH ×2 (11:45→21:37)
[2016-10-12 12:08] LABS: METAMYELOCYTE 1 % (0-2)
[2016-10-12] MEDS: NITROFURANTOIN MACROCRYSTAL 50 MG CAPSULE (FP) PO SCH ×2 (12:08→17:35)
--- NOTE | 2016-10-12 15:50 | CONS ---
DATE OF CONSULTATION: 10/12/2016 The patient is a 75-year-old female with a history of dementia, diabetes mellitus, gouty arthritis, admitted from assisted living on October 09, 2016, with complaints of right knee pain. She complained of right knee pain after a self-reported fall. She was noted on admission to have pain on palpation of the knee. X-rays of the right knee were negative for fracture. She complained of some mild dysuria. She was noted to have pyuria. Urine culture now grew an ESBL. She reports intermittent dysuria. Denies suprapubic or flank pain. She has been afebrile, with a mildly elevated white blood cell count. Past medical history positive for dementia, hypertension, diabetes, gouty arthritis, hyperlipidemia, hypothyroidism. Allergies to ИРИНА INHIBITORS and SULFA. MEDICATIONS: Cozaar, Neurontin, trazodone, Zyloprim, Coreg, Zetia, Norvasc, Levemir, Lasix, Synthroid. SOCIAL HISTORY: She resides in an assisted-living complex. She suffers from dementia. She is a nonsmoker, nondrinker. SYSTEMS REVIEW: Neurologic: Positive for dementia. Cardiac: Negative chest pain or palpitations. Respiratory: Negative cough or sputum production. Gastrointestinal: Negative vomiting or diarrhea. Genitourinary: As per HPI. LABORATORY DATA: White count on admission 14,000, presently 11.8. Hematocrit 33.2, platelet count 345. BUN 19, creatinine 1.0. Urinalysis: 3645 white cells. Urine culture: ESBL E coli. PHYSICAL EXAMINATION: General: She is awake and alert, she is not acutely toxic appearing, out of bed to chair. Vital Signs: Temperature 98.2. Blood pressure 146/64. Pulse 74, regular. Respirations 20 per minute. Eyes: Sclerae anicteric. Heart Sounds: S1, S2. Lungs: Clear. Abdomen: Soft. No suprapubic or flank tenderness. Extremities: Negative for edema. No knee swelling noted. IMPRESSION: 1. Uncomplicated urinary tract infection, extended-spectrum beta lactamase. 2. Leukocytosis, improved. 3. SULFA allergy. 4. Dementia. Start nitrofurantoin orally, complete 7-day course. No objection to discharge, from ID standpoint. Thank you for the kind referral. CLAUDIA BERMUDEZ M.D. [id number]
[2016-10-12] MEDS: metroNIDAZOLE 250 MG TABLET PO SCH ×2 (17:35→21:36)
[2016-10-13] MEDS: NITROFURANTOIN MACROCRYSTAL 50 MG CAPSULE (FP) PO SCH ×4 (00:01→17:03)
[2016-10-13] MEDS: GABAPENTIN 100 MG CAPSULE (FP) PO SCH ×3 (06:09→22:09)
[2016-10-13] MEDS: LEVOTHYROXINE NA 112 MCG TABLET (FP) PO SCH (06:09)
[2016-10-13] MEDS: metroNIDAZOLE 250 MG TABLET PO SCH ×3 (06:09→22:08)
[2016-10-13] MEDS: INSULIN SLIDING SCALE (NOVOLOG) 1 VIAL SQ SCH ×4 (06:10→22:19)
[2016-10-13 08:25] LABS: MCH 28.8 pg (25.7-33.7); MCHC 33.1 g/dl (32.0-36.0); MEAN CELL VOLUME 87.1 fl (80-96); MEAN PLT VOLUME 8.1 fl (7.5-11.1); PLATELET COUNT 366 K/MM3 (134-434); RDW 14.2 % (11.6-15.6); WHITE BLOOD COUNT 11.5 K/mm3 (4.0-10.0)
--- NOTE | 2016-10-13 10:24 | PN ---
Physical Exam: SUBJECTIVE: Patient seen and examined. Denies all complaints. OBJECTIVE: Vital Signs Period Temp Pulse Resp BP Sys/Glynn Pulse Ox Last 24 Hr 97.7 F-98.7 F 65-72 16-20 140-160/64-78 98 GENERAL: The patient is awake, alert, oriented x 1, in no acute distress. EYES: PERRL, extraocular movements intact, sclera anicteric, conjunctiva clear. No ptosis. ENT: Ears normal, nares patent, oropharynx clear without exudates, moist mucous membranes. NECK: Trachea midline, full range of motion, supple. LUNGS: Breath sounds equal, clear to auscultation bilaterally, no wheezes, no crackles, no accessory muscle use. HEART: Regular rate and rhythm, S1, S2 without murmur, rub or gallop. ABDOMEN: Soft, nontender, nondistended, normoactive bowel sounds, no guarding, no rebound, no hepatosplenomegaly, no masses. EXTREMITIES: 2+ pulses, warm, well-perfused, no edema. NEUROLOGICAL: Cranial nerves II through XII grossly intact. Normal speech, gait not observed. PSYCH: Normal mood, normal affect. SKIN: Warm, dry, normal turgor, no rashes or lesions noted Laboratory Results - last 24 hr 10/11/16 10/12/16 10/12/16 13:10 06:30 11:34 WBC 12.4 H 11.8 H RBC 3.87 3.78 Hgb 11.1 10.9 Hct 34.4 33.2 MCV 88.9 87.7 MCH 28.7 28.8 MCHC 32.3 32.8 RDW 14.4 14.3 Plt Count 393 345 MPV 8.5 8.2 Neutrophils % 62.0 D 59.0 Lymphocytes % 24.0 D 31.0 D Monocytes % 7.0 9.0 Eosinophils % 1.0 Basophils % 2.0 Metamyelocytes 1 Myelocytes 3 H D 1 D Differential Comment Manual diff done Manual diff done Platelet Estimate Adequate POC Glucometer 191 10/12/16 10/12/16 10/13/16 17:39 21:23 06:07 WBC RBC Hgb Hct MCV MCH MCHC RDW Plt Count MPV Neutrophils % Lymphocytes % Monocytes % Eosinophils % Basophils % Metamyelocytes Myelocytes Differential Comment Platelet Estimate POC Glucometer 165 195 86 10/13/16 06:45 WBC 11.5 H RBC 3.92 Hgb 11.3 Hct 34.1 MCV 87.1 MCH 28.8 MCHC 33.1 RDW 14.2 Plt Count 366 MPV 8.1 Neutrophils % Lymphocytes % Monocytes % Eosinophils % Basophils % Metamyelocytes Myelocytes Differential Comment Platelet Estimate POC Glucometer Active Medications Generic Name Dose Route Start Last Admin Trade Name Nemo PRN Reason Stop Dose Admin Allopurinol 100 mg 10/10/16 10:00 10/12/16 09:35 Zyloprim - PO 100 mg DAILY VICENTE Administration Amlodipine Besylate 10 mg 10/10/16 10:00 10/12/16 09:35 Norvasc - PO 10 mg DAILY VICENTE Administration Carvedilol 25 mg 10/10/16 10:00 10/12/16 21:36 Coreg - PO 25 mg BID [facility] Administration Cyanocobalamin 1,000 mcg 10/10/16 10:00 10/12/16 09:33 Vitamin B12 - PO 1,000 mcg DAILY [facility] Administration Ezetimibe 10 mg 10/10/16 10:00 10/12/16 09:33 Zetia - PO 10 mg DAILY [facility] Administration Estrogens Conjugated 0.3 mg 10/10/16 10:00 10/12/16 09:39 Premarin - PO 0.3 mg DAILY [facility] Administration Folic Acid 0.5 mg 10/10/16 10:00 10/12/16 09:33 Folic Acid - PO 0.5 mg DAILY [facility] Administration Furosemide 20 mg 10/10/16 10:00 10/12/16 09:35 Lasix - PO 20 mg DAILY [facility] Administration Gabapentin 100 mg 10/10/16 06:00 10/13/16 06:09 Neurontin - PO 100 mg TID [facility] Administration Heparin Sodium (Porcine) 5,000 unit 10/10/16 10:00 10/12/16 21:36 Heparin - SQ 5,000 unit BID [facility] Administration Insulin Aspart 1 vial 10/10/16 07:00 10/13/16 06:10 Novolog Vial Sliding Scale - SQ Not Given [facility] Protocol Insulin Detemir 32 units 10/11/16 22:00 10/12/16 21:37 Levemir Vial SQ 32 unit BID [facility] Administration Levothyroxine Sodium 112 mcg 10/10/16 07:00 10/13/16 06:09 Synthroid - PO 112 mcg DAILY@0700 VICENTE Administration Losartan Potassium 100 mg 10/10/16 10:00 10/12/16 09:35 Cozaar - PO 100 mg DAILY VICENTE Administration Medroxyprogesterone Acetate 2.5 mg 10/10/16 10:00 10/12/16 09:39 Provera - PO 2.5 mg DAILY VICENTE Administration Metronidazole 500 mg 10/12/16 15:30 10/13/16 06:09 Flagyl - PO 500 mg TID VICENTE Administration Nitrofurantoin Macrocrystals 50 mg 10/12/16 12:00 10/13/16 06:09 Macrodantin - PO 50 mg Q6HPO VICENTE Administration Trazodone HCl 50 mg 10/10/16 05:05 Desyrel - PO HS PRN INSOMNIA Microbiology 10/10/16 02:45 Blood - Peripheral Venous Blood Culture - Preliminary Pending Organism 10/10/16 03:00 Blood - Peripheral Venous Blood Culture - Preliminary NO GROWTH OBTAINED AFTER 72 HOURS, INCUBATION TO CONTINUE FOR 2 DAYS. 10/11/16 17:00 Stool Clostridium difficile Antigen (VALENCIA) - Final 10/11/16 17:00 Stool Clostridium difficile Toxin Assay - Final 10/10/16 02:20 Urine - Urine - Catheterized Urine Culture - Final Escherichia Coli Esbl [employer] ASSESSMENT/PLAN: 75 year old female with a history of dementia, HTN, HLD, IDDM, and depression, who presented to the ED from [facility] for agitation and right knee pain. 1) ID ESBL UTI - Continue oral Macrobid Diarrhea C diff antigen pos, toxin neg but symptomatic - Continue oral Flagyl 2) Endocrine: DM - Continue Levemir - ISS ACHS - BGM ACHS Hypothyroidism - Continue Synthroid 3) MSK: Right knee pain - X-ray with no acute fracture or process - Denies pain today 4) Cardiology: HTN - At goal for age; continue Coreg/Cozaar/Lasix/Norvasc HLD - Continue Zetia 5) F/E/N: - Sodium controlled diabetic diet - Monitor electrolytes 6) Prophylaxis: - Heparin 5,000u sq bid - PT 7) Dispo: Medically stable for discharge. Son agrees to JENNIFER (walked only 20 ft with PT). retail manager notified. CODE STATUS: DNR/DNI Visit type - Emergency Visit Emergency Visit: Yes ED Registration Date: 10/10/16 Care time: The patient presented to the Emergency Department on the above date and was hospitalized for further evaluation of their emergent condition. - New Patient This patient is new to me today: Yes Date on this admission: 10/13/16 - Critical Care Critical Care patient: No - Discharge Referral Referred to [facility] Med P.C.: No
[2016-10-13] MEDS: CYANOCOBALAMIN 1,000 MCG TABLET (FP) PO SCH (10:48)
[2016-10-13] MEDS: FOLIC ACID 1 MG TABLET (FP) PO SCH (10:48)
[2016-10-13] MEDS: EZETIMIBE 10 MG TABLET (FP) PO SCH (10:48)
[2016-10-13] MEDS: CARVEDILOL 25 MG TABLET (FP) PO SCH ×2 (10:49→22:05)
[2016-10-13] MEDS: LOSARTAN POTASSIUM 50 MG TABLET (FP) PO SCH (10:49)
[2016-10-13] MEDS: amLODIPine BESYLATE 10 MG TABLET (FP) PO SCH (10:49)
[2016-10-13] MEDS: ALLOPURINOL 100 MG TABLET (FP) PO SCH (10:49)
[2016-10-13] MEDS: FUROSEMIDE 20 MG TABLET (FP) PO SCH (10:49)
[2016-10-13] MEDS: HEPARIN NA (PORCINE) 5,000 UNITS/ML 1ML VIAL SQ SCH ×2 (10:49→22:09)
[2016-10-13] MEDS: ESTROGENS,CONJUGATED 0.3 MG TABLET PO SCH (10:50)
[2016-10-13] MEDS: INSULIN DETEMIR 100 UNITS/ML MDV SQ SCH ×2 (11:45→22:16)
[2016-10-13] MEDS ORDERED: INSULIN (NOVOLOG) ASPART 100 UNITS/ML 10ML VIAL ONE (12:19)
[2016-10-14] MEDS: NITROFURANTOIN MACROCRYSTAL 50 MG CAPSULE (FP) PO SCH ×3 (00:35→11:35)
[2016-10-14] MEDS: INSULIN SLIDING SCALE (NOVOLOG) 1 VIAL SQ SCH ×2 (06:34→11:38)
[2016-10-14] MEDS: LEVOTHYROXINE NA 112 MCG TABLET (FP) PO SCH (06:34)
[2016-10-14] MEDS: GABAPENTIN 100 MG CAPSULE (FP) PO SCH ×2 (06:35→14:22)
[2016-10-14] MEDS: metroNIDAZOLE 250 MG TABLET PO SCH ×2 (06:35→14:22)
--- NOTE | 2016-10-14 09:15 | PN ---
Physical Exam: SUBJECTIVE: Patient seen and examined OBJECTIVE: Vital Signs Period Temp Pulse Resp BP Sys/Glynn Pulse Ox Last 24 Hr 97.9 F-98.9 F 66-74 18-20 113-153/45-71 GENERAL: The patient is awake, alert, and fully oriented, in no acute distress. HEAD: Normal with no signs of trauma. EYES: PERRL, extraocular movements intact, sclera anicteric, conjunctiva clear. No ptosis. ENT: Ears normal, nares patent, oropharynx clear without exudates, moist mucous membranes. NECK: Trachea midline, full range of motion, supple. LUNGS: Breath sounds equal, clear to auscultation bilaterally, no wheezes, no crackles, no accessory muscle use. HEART: Regular rate and rhythm, S1, S2 without murmur, rub or gallop. ABDOMEN: Soft, nontender, nondistended, normoactive bowel sounds, no guarding, no rebound, no hepatosplenomegaly, no masses. EXTREMITIES: 2+ pulses, warm, well-perfused, no edema. NEUROLOGICAL: Cranial nerves II through XII grossly intact. Normal speech, gait not observed. PSYCH: Normal mood, normal affect. SKIN: Warm, dry, normal turgor, no rashes or lesions noted Laboratory Results - last 24 hr 10/13/16 10/13/16 10/13/16 11:34 16:58 22:03 POC Glucometer 176 163 157 10/14/16 06:33 POC Glucometer 111 Active Medications Generic Name Dose Route Start Last Admin Trade Name Freq PRN Reason Stop Dose Admin Allopurinol 100 mg 10/10/16 10:00 10/13/16 10:49 Zyloprim - PO 100 mg DAILY VICENTE Administration Amlodipine Besylate 10 mg 10/10/16 10:00 10/13/16 10:49 Norvasc - PO 10 mg DAILY VICENTE Administration Carvedilol 25 mg 10/10/16 10:00 10/13/16 22:05 Coreg - PO 25 mg BID VICENTE Administration Cyanocobalamin 1,000 mcg 10/10/16 10:00 10/13/16 10:48 Vitamin B12 - PO 1,000 mcg DAILY VICENTE Administration Ezetimibe 10 mg 10/10/16 10:00 10/13/16 10:48 Zetia - PO 10 mg DAILY VICENTE Administration Estrogens Conjugated 0.3 mg 10/10/16 10:00 10/13/16 10:50 Premarin - PO 0.3 mg DAILY VICENTE Administration Folic Acid 0.5 mg 10/10/16 10:00 10/13/16 10:48 Folic Acid - PO 0.5 mg DAILY VICENTE Administration Furosemide 20 mg 10/10/16 10:00 10/13/16 10:49 Lasix - PO 20 mg DAILY VICENTE Administration Gabapentin 100 mg 10/10/16 06:00 10/14/16 06:35 Neurontin - PO 100 mg TID VICENTE Administration Heparin Sodium (Porcine) 5,000 unit 10/10/16 10:00 10/13/16 22:09 Heparin - SQ 5,000 unit BID VICENTE Administration Insulin Aspart 1 vial 10/10/16 07:00 10/14/16 06:34 Novolog Vial Sliding Scale - SQ Not Given ACHS [facility] Protocol Insulin Detemir 32 units 10/11/16 22:00 10/13/16 22:16 Levemir Vial SQ 32 unit BID VICENTE Administration Levothyroxine Sodium 112 mcg 10/10/16 07:00 10/14/16 06:34 Synthroid - PO 112 mcg DAILY@0700 [facility] Administration Losartan Potassium 100 mg 10/10/16 10:00 10/13/16 10:49 Cozaar - PO 100 mg DAILY [facility]E Administration Medroxyprogesterone Acetate 2.5 mg 10/10/16 10:00 10/13/16 10:51 Provera - PO 2.5 mg DAILY [facility]E Administration Metronidazole 500 mg 10/12/16 15:30 10/14/16 06:35 Flagyl - PO 500 mg TID VICENTE Administration Nitrofurantoin Macrocrystals 50 mg 10/12/16 12:00 10/14/16 06:35 Macrodantin - PO 50 mg Q6HPO [facility] Administration Trazodone HCl 50 mg 10/10/16 05:05 Desyrel - PO HS PRN INSOMNIA ASSESSMENT/PLAN:
[2016-10-14] MEDS ORDERED: PT OWN MED DRAWER 7, Y5N ONE (09:56)
[2016-10-14] MEDS: EZETIMIBE 10 MG TABLET (FP) PO SCH (10:03)
[2016-10-14] MEDS: LOSARTAN POTASSIUM 50 MG TABLET (FP) PO SCH (10:03)
[2016-10-14] MEDS: FOLIC ACID 1 MG TABLET (FP) PO SCH (10:03)
[2016-10-14] MEDS: amLODIPine BESYLATE 10 MG TABLET (FP) PO SCH (10:03)
[2016-10-14] MEDS: FUROSEMIDE 20 MG TABLET (FP) PO SCH (10:03)
[2016-10-14] MEDS: CYANOCOBALAMIN 1,000 MCG TABLET (FP) PO SCH (10:03)
[2016-10-14] MEDS: CARVEDILOL 25 MG TABLET (FP) PO SCH (10:03)
[2016-10-14] MEDS: ALLOPURINOL 100 MG TABLET (FP) PO SCH (10:03)
[2016-10-14] MEDS: ESTROGENS,CONJUGATED 0.3 MG TABLET PO SCH (10:03)
[2016-10-14] MEDS: INSULIN DETEMIR 100 UNITS/ML MDV SQ SCH ×2 (10:03→10:15)
[2016-10-14] MEDS: HEPARIN NA (PORCINE) 5,000 UNITS/ML 1ML VIAL SQ SCH ×2 (10:04→10:15)
--- NOTE | 2016-10-14 10:27 | PN ---
Progress Note, Physician History of Present Illness: Lethargic in bed No complaints offered Denies dysuria, suprapubic/ flank pain Denies diarrhea - Current Medication List Current Medications: Active Medications Allopurinol (Zyloprim -) 100 mg PO DAILY [facility] Last Admin: 10/14/16 10:03 Dose: 100 mg Amlodipine Besylate (Norvasc -) 10 mg PO DAILY [facility] Last Admin: 10/14/16 10:03 Dose: 10 mg Carvedilol (Coreg -) 25 mg PO BID [facility] Last Admin: 10/14/16 10:03 Dose: 25 mg Cyanocobalamin (Vitamin B12 -) 1,000 mcg PO DAILY [facility] Last Admin: 10/14/16 10:03 Dose: 1,000 mcg Ezetimibe (Zetia -) 10 mg PO DAILY [facility] Last Admin: 10/14/16 10:03 Dose: 10 mg Estrogens Conjugated (Premarin -) 0.3 mg PO DAILY [facility] Last Admin: 10/14/16 10:03 Dose: 0.3 mg Folic Acid (Folic Acid -) 0.5 mg PO DAILY [facility] Last Admin: 10/14/16 10:03 Dose: 0.5 mg Furosemide (Lasix -) 20 mg PO DAILY [facility] Last Admin: 10/14/16 10:03 Dose: 20 mg Gabapentin (Neurontin -) 100 mg PO TID [facility] Last Admin: 10/14/16 06:35 Dose: 100 mg Heparin Sodium (Porcine) (Heparin -) 5,000 unit SQ BID [facility] Last Admin: 10/14/16 10:15 Dose: Not Given Insulin Aspart (Novolog Vial Sliding Scale -) 1 vial SQ [facility] PRN Reason: Protocol Last Admin: 10/14/16 06:34 Dose: Not Given Insulin Detemir (Levemir Vial) 32 units SQ BID [facility] Last Admin: 10/14/16 10:15 Dose: Not Given Levothyroxine Sodium (Synthroid -) 112 mcg PO DAILY@0700 [facility] Last Admin: 10/14/16 06:34 Dose: 112 mcg Losartan Potassium (Cozaar -) 100 mg PO DAILY [facility] Last Admin: 10/14/16 10:03 Dose: 100 mg Medroxyprogesterone Acetate (Provera -) 2.5 mg PO DAILY [facility] Last Admin: 10/14/16 10:03 Dose: 2.5 mg Metronidazole (Flagyl -) 500 mg PO TID [facility] Last Admin: 10/14/16 06:35 Dose: 500 mg Nitrofurantoin Macrocrystals (Macrodantin -) 50 mg PO Q6HPO [facility] Last Admin: 10/14/16 06:35 Dose: 50 mg Trazodone HCl (Desyrel -) 50 mg PO HS PRN PRN Reason: INSOMNIA - Objective Vital Signs: Vital Signs Temperature 97.9 F 10/14/16 06:00 Pulse Rate 66 10/14/16 06:00 Respiratory Rate 20 10/14/16 06:00 Blood Pressure 153/59 10/14/16 06:00 O2 Sat by Pulse Oximetry (%) 98 10/13/16 09:00 Constitutional: Yes: No Distress Eyes: Yes: Conjunctiva Clear Cardiovascular: Yes: Regular Rate and Rhythm, S1, S2 Respiratory: Yes: CTA Bilaterally Gastrointestinal: Yes: Normal Bowel Sounds, Soft. No: Tenderness Labs: CBC, BMP 10/13/16 06:45 10/12/16 06:30 Assessment/Plan UTI ESBL + C difficile Ag + BC SCN- contaminant OBS Complete 7d course nitrofurantoin, 10d course flagyl No treatment for + BC
--- NOTE | 2016-10-14 12:52 | DS ---
Physical Exam: SUBJECTIVE: Patient seen and examined. Offers no complaints. OBJECTIVE: Vital Signs Period Temp Pulse Resp BP Sys/Glynn Pulse Ox Last 24 Hr 97.4 F-98.9 F 66-74 18-20 113-155/45-71 96 PHYSICAL EXAM GENERAL: The patient is awake, alert, oriented x 1, in no acute distress. HEAD: Normal with no signs of trauma. EYES: PERRL, extraocular movements intact, sclera anicteric, conjunctiva clear. ENT: Ears normal, nares patent, oropharynx clear without exudates, moist mucous membranes. NECK: Trachea midline, full range of motion, supple. LUNGS: Breath sounds equal, clear to auscultation bilaterally, no wheezes, no crackles, no accessory muscle use. HEART: Regular rate and rhythm, S1, S2 without murmur, rub or gallop. ABDOMEN: Soft, nontender, nondistended, normoactive bowel sounds, no guarding, no rebound, no hepatosplenomegaly, no masses. EXTREMITIES: 2+ pulses, warm, well-perfused, no edema. NEUROLOGICAL: Cranial nerves II through XII grossly intact. Normal speech, gait not observed. PSYCH: Normal mood, normal affect. SKIN: Warm, dry, normal turgor, no rashes or lesions noted. LABS Laboratory Results - last 24 hr 10/13/16 10/13/16 10/14/16 16:58 22:03 06:33 POC Glucometer 163 157 111 10/14/16 11:32 POC Glucometer 191 HOSPITAL COURSE: This is a 75 year old female with a history of dementia, HTN, gout, hypothyroidism, IDDM, HLD, and depression who presented to the ED from her assisted living facility on 10/10 with right knee pain. She informed the ER of a recent fall in which she injured multiple parts of her body; however, the ED called her assisted living facility who did not confirm same, and they know of no recent fall. ER course was notable for: (1) WBC 14.0 (2) UA c/w UTI The patient was admitted and started on IV Rocephin. Her urine culture then grew ESBL E Coli, and her antibiotics were changed to Ertapenem and then oral Macrodantin. Her WBC has normalized. She has remained afebrile. She denies dysuria. She was noted to have diarrhea during her stay. C difficile studies were sent. She is antigen positive but toxin negative, however she is being treated as she is symptomatic. One blood culture from 10/10 grew Staphylococcus coagulase neg, however this is suspected to be a contaminant and no treatment is recommended. She was only able to walk a maximum of 20 feet with PT, so she will be discharged to SNF rather than back to her assisted living. Plan is to continue Macrodantin 50mg po 6h through 10/17 for treatment of ESBL UTI and Flagyl 500mg q6h po through 10/21 for treatment of c difficile diarrhea. Isolation precautions to be maintained. Date of Admission:10/10/16 Date of Discharge: 10/14/16 Minutes to complete discharge: 35 Discharge Summary Reason For Visit: UTI Current Active Problems C. difficile diarrhea (Acute) UTI (urinary tract infection) (Acute) Condition: Stable - Instructions Diet, Activity, Other Instructions: -Continue all prescribed medications, with the following additions: -Macrodantin 50mg po q6h through 10/17 for urinary tract infection -Flagyl 500mg po q6h through 10/21 for c difficile diarrhea -Return for fevers, inability to drink fluids, or any other concerning symptoms Referrals: Gracie Cage MD [Primary Care Provider] - Disposition: [facility] HOME [facility]ILITY - Home Medications Comprehensive Discharge Medication List: Ambulatory Orders Allopurinol [Zyloprim -] 100 mg PO DAILY 05/21/16 Amlodipine Besylate 10 mg PO DAILY 05/21/16 Carvedilol [Coreg -] 25 mg PO BID 05/21/16 Cyanocobalamin (Vitamin B-12) [Vitamin B-12] 1,000 mcg PO DAILY 05/21/16 Estrogens,Conjugated [Premarin -] 0.3 mg PO DAILY 05/21/16 Ezetimibe [Zetia] 10 mg PO DAILY 05/21/16 Folic Acid 0.4 mg PO DAILY 05/21/16 Insulin (Levemir) [Levemir Flexpen -] 32 units SQ BID 05/21/16 Insulin Lispro [Humalog Kwikpen U-100] 0 unit SQ ASDIR 05/21/16 Levothyroxine [Synthroid -] 112 mcg PO DAILY 05/21/16 Losartan Potassium 100 mg PO DAILY 05/21/16 Medroxyprogesterone Acetate 2.5 mg PO DAILY 05/21/16 Trazodone HCl 50 mg PO HS PRN 05/21/16 Cyanocobalamin [Vitamin B12 -] 1,000 mcg PO DAILY 10/10/16 Furosemide [Lasix -] 20 mg PO DAILY 10/10/16 Gabapentin 100 mg PO TID 10/10/16 Metronidazole [Flagyl -] 500 mg PO Q8H #20 tablet 10/12/16 Nitrofurantoin Macrocrystal [Macrodantin -] 50 mg PO Q6HPO mg 10/12/16 This patient is new to me today: No Emergency Visit: Yes ED Registration Date: 10/10/16 Care time: The patient presented to the Emergency Department on the above date and was hospitalized for further evaluation of their emergent condition. Critical Care patient: No - Discharge Referral Referred to [facility] Med P.C.: No
[2016-10-14 15:49] VITALS: BP 142/65; PULSE 65; TEMP 98.4
== END 2016-10-14 15:51 | DRG 690 ==
LOC: JER 17:57 → JERBED 10-10 04:00 → J8W 10-10 12:25
PROVIDERS: ADMIT Internal Medicine; ATTEND Registered Nurse Emergency
DX: N39.0 Urinary tract infection, site not specified (principal); A04.7 Enterocolitis due to Clostridium difficile; F03.91 Unspecified dementia, unspecified severity, with behavioral disturbance; B96.20 Unspecified Escherichia coli [E. coli] as the cause of diseases classified elsewhere; M10.9 Gout, unspecified; E11.9 Type 2 diabetes mellitus without complications; E03.9 Hypothyroidism, unspecified; E78.5 Hyperlipidemia, unspecified; F32.9 Major depressive disorder, single episode, unspecified; D72.829 Elevated white blood cell count, unspecified; M25.461 Effusion, right knee; M25.561 Pain in right knee
CPT/HCPCS: 36415; 70450-TC; 71010-TC; 73560-TC-RT; 80048; 80053; 81003; 81015; 83735; 84100; 85025; 85027; 87040; 87045; 87046; 87086; 87177; 87186; 87209; 87324; 87449; 90670; 93005; 93010; 97116-GP; 97162-GP; 99285-25; J1644